=== PATIENT | male | born 1945 ===

== ENCOUNTER 2024-11-09 14:05 | Inpatient (IN) | payer OTHER, SELFPAY ==
[2024-11-09] VITALS (13 sets, daily range): BP systolic 90–145; BP diastolic 46–80; PULSE 71–115; RESP 16–25; TEMP 36.4–38.8; O2SAT 93–99; BMI 34.5
--- NOTE | ~2024-11-09 | XR_ITS ---
EXAMINATION: XR CHEST CLINICAL INFORMATION: CHF COMPARISON: None available. TECHNIQUE: Frontal view of the chest was obtained. FINDINGS: There is mild cardiac enlargement. Aortic valve replacement (TAVR). Mild vascular congestion in the hilar regions. Haziness of the interstitium, with subtle Christi B lines in the peripheral lungs, findings consistent with CHF. No discrete consolidation. No pneumothorax or effusion. No focal osseous or soft tissue abnormality. XR/XR chest 1V IMPRESSION: Cardiomegaly with moderate interstitial pulmonary edema. No effusions. Electronically signed by: Andrez Byers MD 11/09/2024 03:48 PM [facility] [place]
--- NOTE | 2024-11-09 14:24 | ED.GENADULT ---
HPI - General Adult General Chief complaint: General Medical Stated complaint: 10LB WT GAIN,FLUID RETENTION X2D FROM SNF PER EMS Time Seen by Provider: 11/09/24 14:15 Source: patient, EMS and RN notes reviewed Mode of arrival: EMS Limitations: no limitations History of Present Illness ED Provider: DR. Park HPI narrative: 79-year-old male from [facility]. Patient was brought in by ambulance for a change mental status and becoming confused, increased weight about 10 lb in 2 day, extensive bilateral lower extremity edema. Patient found to be febrile in the emergency department. Unable to obtain history from the patient. No known history of CHF, Related Data Home Medications ?Medication ?Instructions ?Recorded ?Confirmed apixaban 5 mg tablet (Eliquis) 5 mg PO BID 11/09/24 11/09/24 bisacodyl 10 mg rectal suppository 10 mg NC Q8H PRN Constipation 11/09/24 11/09/24 cetirizine 10 mg tablet 10 mg PO DAILY 11/09/24 11/09/24 cholecalciferol (vitamin D3) 125 125 mcg PO DAILY 11/09/24 11/09/24 mcg (5,000 unit) tablet (Vitamin D3) docusate sodium 100 mg tablet 100 mg PO Q12H PRN Constipation 11/09/24 11/09/24 furosemide 20 mg tablet 60 mg PO BID@0900,1700 11/09/24 11/09/24 hydrocortisone 1 % topical cream 1 appl topical Q6H PRN Hemorrhoids 11/09/24 11/09/24 (Preparation H Hydrocortisone) hydromorphone 2 mg tablet 4 mg PO Q4H PRN Pain (Scale Score 11/09/24 11/09/24 7-10) lidocaine-prilocaine 2.5 %-2.5 % 1 appl topical DAILY PRN Pain 11/09/24 11/09/24 topical cream magnesium hydroxide 400 mg/5 mL 30 ml PO DAILY PRN Constipation 11/09/24 11/09/24 oral suspension (Milk of Magnesia) methyl salicylate 15 %-menthol 10 1 appl topical Q12H PRN Pain 11/09/24 11/09/24 % topical cream (Muscle Rub) (Scale Score 1-3) metoprolol tartrate 25 mg tablet 25 mg PO BID 11/09/24 11/09/24 pantoprazole 40 mg tablet,delayed 40 mg PO DAILY@0630 11/09/24 11/09/24 release polyethylene glycol 3350 17 gram 17 g PO DAILY PRN Constipation 11/09/24 11/09/24 oral powder packet (Miralax) potassium chloride 20 mEq 20 meq PO DAILY 11/09/24 11/09/24 tablet,extended release(part/cryst) sodium phosphates 19 gram-7 118 ml NC DAILY PRN Constipation 11/09/24 11/09/24 gram/118 mL enema (Fleet Enema) tamsulosin 0.4 mg capsule 0.4 mg PO DAILY 11/09/24 11/09/24 Allergies Allergy/AdvReac Type Severity Reaction Status Date / Time acetaminophen [From Tylenol] Allergy Unknown Verified 11/09/24 14:16 atorvastatin Allergy Unknown Verified 11/09/24 14:16 cyclobenzaprine Allergy Unknown Verified 11/09/24 14:16 [From Flexeril] ibuprofen [From Motrin] Allergy Unknown Verified 11/09/24 14:16 Review of Systems Review of Systems: All other systems are reviewed and are negative Constitutional: Reports as per HPI and Reports no additional constitutional complaints Eyes: Reports as per HPI and Reports no additional eye complaints Reports system reviewed and no additional complaints, except as documented Cardiovascular: Reports as per HPI and Reports no additional cardiovascular complaints Respiratory: Reports as per HPI and Reports no additional respiratory complaints Gastrointestinal: Reports as per HPI and Reports no additional gastrointestinal complaints Genitourinary: Reports no additional female genitourinary complaints Musculoskeletal: Reports no additional musculoskeletal complaints Skin/Breast: Reports system reviewed and no additional complaints, except as docu Psychiatric: Reports no additional psychiatric complaints Endocrine: Reports no additional endocrine complaints Hematologic/Lymphatic: Reports no additional hematologic/lymphatic complaints Allergic/Immunologic: Reports no additional allergic/immunologic complaints Reports system reviewed and no additional complaints, except as documented and Reports Abnormal speech present [facility] Social History Social History Smoked in Last 30 Days: No Use of substances other than those prescribed or required for medical reasons: No Advance Directives: No Advance Directives Information Provided: Yes Do you have a plan to hurt others: No Plan Physical Exam ED Vital Signs: Vital Signs - 24 hr 11/09/24 14:19 11/09/24 15:02 11/09/24 15:36 Temperature 100.8 F H 99 F Pulse Rate 115 H 110 H Respiratory Rate 18 17 Blood Pressure 129/75 136/66 145/69 H Pulse Oximetry 95 94 Oxygen Delivery Method Room Air Room Air 11/09/24 16:24 11/09/24 18:52 Temperature 101.8 F H Pulse Rate 111 H 96 Respiratory Rate 18 19 Blood Pressure 142/74 H 130/70 Pulse Oximetry 93 93 Oxygen Delivery Method Room Air Room Air BMI result Body Mass Index 34.5 Vital signs have been reviewed and appear to be correct. Blood pressure elevated. Heart rate elevated. Respiratory rate normal. Temperature normal. Oxygen saturation normal. Appearance: Alert. Oriented X3. No acute distress. Head: Normal external exam. Normocephalic. Atraumatic. No Guzmán signs noted. No raccoon eyes noted Eyes: PERRLA. EOMI. Conjunctiva and sclera normal. Eyelids normal. ENT: TM's Normal. Pharynx normal. Uvula midline. Moist mucous membranes. No trismus noted. No drooling noted. No muffled voice noted. Neck: Normal inspection. Neck supple. FROM. No adenopathy. Thyroid Normal. No meningeal signs. No neck mass noted. CVS: Normal heart rate and rhythm. Heart sound normal. No murmurs noted. Pulses normal throughout. Respiratory: No respiratory distress. Painless inspiration. Breath sounds normal. No wheezes/rales/rhonchi noted. Chest nontender. No accessory muscle usage noted or decreased air movement noted. Abdomen: Soft and nontender. Bowel sounds normal in all 4 quadrants. No distention noted. No organomegaly noted. No visible injury noted. Back: No CVA tenderness. Full range of motion noted. Skin: Skin warm and dry. Normal skin color. Normal skin turgor. No rashes/lesions/lacerations noted. Extremities: +bilateral +2 lower extremity edema. With diffuse erythema to both lower extremities. Extremities exhibit normal range of motion. Extremities nontender. Neuro: Oriented X 3. Cranial nerve exam: II-XII are grossly intact No motor deficit. No sensory deficit. Reflexes normal. Course Reevaluation(s) Reevaluation #1: Bilateral lower extremities edema will administer Lasix. UTI/bilateral lower extremity cellulitis. Will administer Zosyn. Influenza a No IV fluid administration patient needs diuresis rather for a sign of hypervolemia. Will admit. Time: 16:41 Medications Administered Discontinued Medications Generic Name Dose Route Start Last Admin Trade Name Cory PRN Reason Stop Dose Admin Acetaminophen 650 mg 11/09/24 19:13 11/09/24 19:41 Acetaminophen 325 Mg Tablet PO 11/09/24 19:14 Not Given ONCE ONE Furosemide 40 mg 11/09/24 14:54 11/09/24 15:02 Furosemide 40 Mg/4 Ml Vial IVPUSH 11/09/24 14:55 40 mg ONCE ONE Administration Protocol Piperacillin Sod/Tazobactam 50 mls @ 100 mls/hr 11/09/24 14:42 11/09/24 15:32 Sod 3.375 gm/ Sodium Chloride IV 11/09/24 15:11 Infused ONCE ONE Infusion Medical Decision Making Differential Diagnosis Differential Diagnoses: The differential diagnosis associated with the presentation includes (CHF, pneumonia, pneumothorax, pleural effusion, viral upper respiratory infection, UTI, bilateral lower extremity cellulitis, electrolyte derangement, severe anemia.) Admission/Observation Consideration of admission/observation: Escalation of care including admission/observation considered Consult Healthcare Provider Management of the patient was discussed with: Hospitalist (Dr. Crowe) Lab Data MDM Lab Attestation statement: I reviewed the patient's lab results. 11/09/24 14:51 11/09/24 14:51 Labs: Lab Results 11/09/24 11/09/24 11/09/24 Range/Units 14:51 14:52 15:47 WBC 6.0 (4.8-10.8) X10*3/uL RBC 3.73 L (4.60-5.80) X10*6/uL Hgb 11.1 L (14.0-18.0) g/dl Hct 34.2 L (42.0-52.0) % MCV 91.7 (80.0-98.0) fL MCH 29.8 (27.0-33.0) pg MCHC 32.5 (31.0-36.0) g/dl RDW 14.4 (11.0-16.0) % Plt Count 79 L (160-400) X10*3/uL MPV 11.3 (9.4-12.4) fL Immature Gran % (Auto) 0.5 H (0.0-0.4) % Neut % (Auto) 80.6 H (45-73) % Lymph % (Auto) 7.7 L (20-40) % [place] % (Auto) 10.2 (2-11) % Eos % (Auto) 0.5 (0-4) % Baso % (Auto) 0.5 (0-2) % Lymph # (Auto) 0.5 L (1.2-4.9) X10*3/uL [place] # (Auto) 0.6 (0.1-1.2) X10*3/uL Eos # (Auto) 0.0 (0.0-0.4) X10*3/uL Baso # (Auto) 0.0 (0.0-0.2) X10*3/uL Abs Immat Gran (auto) 0.03 (0.00-0.03) X10*3/uL Absolute Neuts (auto) 4.8 (2.0-8.3) x10*3/uL Absolute Nucleated RBC 0.000 (0.0-0.012) X10*3/uL Nucleated RBC % (auto) 0.0 (0.0-0.2) /100WBC Sodium 134 L (135-145) mmol/L Potassium 5.1 (3.3-5.1) mmol/L Chloride 100 (96-108) mmol/L Carbon Dioxide 18 L (22-29) mmol/L Anion Gap 21 H (12-20) BUN 36 H (9-16) mg/dL Creatinine 1.20 (0.5-1.4) mg/dL Estim Creat Clear Calc 57.1 Estimated GFR 59 Random Glucose 90 (60-115) mg/dL Lactic Acid 1.9 (0.5-2.0) mmol/L Calcium 9.5 (8.4-10.2) mg/dL Magnesium 2.0 (1.6-2.6) mg/dL Total Bilirubin 1.1 H (0.0-1.0) mg/dL Direct Bilirubin 0.2 (0.0-0.5) mg/dL AST 58 H (5-37) U/L ALT 13 (0-40) U/L Alkaline Phosphatase 155 H (39-117) U/L Troponin I High Sens 26.6 (<3.5-35.0) ng/L B-Natriuretic Peptide 208 H (<100) pg/mL Total Protein 8.0 (6.5-8.0) g/dL Albumin 3.8 (3.5-5.0) g/dL Lipase 9 (8-78) U/L Urine Color Yellow Urine Appearance Clear Urine pH 5.5 (5.0-9.0) Ur Specific [place] 1.010 (1.005-1.025) Urine Protein Trace (Neg-Trace) mg/dL Urine Glucose (UA) Negative (Negative) mg/dL Urine Ketones Negative (Negative) mg/dL Urine Blood Negative (Negative) Urine Nitrite Negative (Negative) Ur Leukocyte Esterase Large (3+) H (Negative) Urine RBC 0-2 (0-2) /HPF Urine WBC >50 H (0-5) /HPF Ur Squamous Epith Cells 0-2 (0-2) /HPF Urine Bacteria None Seen (None Seen) Hyaline Casts 3-5 (0-2) /LPF Influenza Type A (PCR) POSITIVE A (Negative) Influenza Type B (PCR) NEGATIVE (Negative) RSV RNA Qual (PCR) NEGATIVE (Negative) SARS-CoV-2 RNA (RT-PCR) NEGATIVE (Negative) Independent Interpretation I performed an independent interpretation of an: Plain X-Ray (Chest:Cardiomegaly with moderate interstitial pulmonary edema. No effusions.) Radiology Impression Discussion of test interpretation with radiology: I have reviewed the radiologist's reading. Discharge Plan Discharge Clinical Impression: CHF (congestive heart failure), Edema, Influenza A, Acute UTI Patient Disposition: Admitted As Inpatient Print Language: Trinidadian
--- NOTE | 2024-11-09 14:43 | ECG_ITS ---
Test Reason : sob Blood Pressure : */* mmHG Vent. Rate : 102 BPM Atrial Rate : * BPM P-R Int : * ms QRS Dur : 112 ms QT Int : 360 ms P-R-T Axes : * -73 87 degrees QTcB Int : 469 ms Atrial fibrillation with rapid ventricular response Left axis deviation Abnormal ECG No previous ECGs available Referred By: Panda Park Electronically Signed By: HARLAN RAJPUT
[2024-11-09 15:00] LABS: MANUAL DIFF FLAG NO
[2024-11-09] MEDS: Piperacillin Sodium/Tazobactam 3.375 GM in 0.9 % Sodium Chloride 50 ML IV (15:02)
[2024-11-09] MEDS: Furosemide 40 MG/4 ML VIAL IVPUSH (15:02)
--- NOTE | 2024-11-09 15:07 | PC.NURSE ---
Per MD Gisel - go with 70mg Methadone
--- NOTE | 2024-11-09 15:15 | PC.NURSE ---
valentín from [facility] c/o unintentional 10lb weight gain x 2 days as well as increased confusion. new dx of CHF. compliant w/ 60mg lasix BID. SNF administered lasix prior to EMS arrival. denies chest pain/palpitations. pt has no complaints. upon ED arrival - pt alert and oriented to self only. vss and up to date aside from being febrile rectally. nsr on the time recorder. pt displays w/ 3+ pitting edema in LE bilat. 18gIV placed in the right forearm - labs obtained/sent to lab. medication administered per provider order. ekg obtained by [employer]. pt currently on RA w/o difficulty. no sob/wob noted. respirations even/unlabored. plan of care ongoing. call sanchez placed within reach.
[2024-11-09 15:22] LABS: Basophils Percent Auto 0.5 % (0-2); Eosinophils Percent Auto 0.5 % (0-4); Hematocrit 34.2 % (42.0-52.0); Hemoglobin 11.1 g/dl (14.0-18.0); Imm Gran Abs Auto 0.03 X10*3/uL (0.00-0.03); Imm Gran Pct Auto 0.5 % (0.0-0.4); Lactic Acid 1.9 mmol/L (0.5-2.0); Lipase 9 U/L (8-78); Lymphocytes Absolute Auto 0.5 X10*3/uL (1.2-4.9); Lymphocytes Percent Auto 7.7 % (20-40); Mean Corpuscular HGB Conc 32.5 g/dl (31.0-36.0); Mean Corpuscular Hemoglobin 29.8 pg (27.0-33.0); Mean Corpuscular Volume 91.7 fL (80.0-98.0); Monocytes Absolute Auto 0.6 X10*3/uL (0.1-1.2); Monocytes Percent Auto 10.2 % (2-11); Neutrophils Absolute Auto 4.8 x10*3/uL (2.0-8.3); Neutrophils Percent Auto 80.6 % (45-73); Red Blood Count 3.73 X10*6/uL (4.60-5.80); Red Cell Distribution Width 14.4 % (11.0-16.0)
[2024-11-09 15:28] LABS: Troponin-I High Sensitivity 26.6 ng/L (<3.5-35.0)
--- NOTE | 2024-11-09 15:32 | PC.NURSE ---
Addendum entered by Yolie Hough 11/09/24 20:29: no IVF bolus per MD d/t hx CHF. Original Note: delay in abx administration d/t having 3 separate sepsis alerts plus this sepsis alert at the same time.
[2024-11-09 15:44] LABS: Influenza A PCR POSITIVE (Negative); Influenza B PCR NEGATIVE (Negative); Resp Syncy Virus RNA Qual PCR NEGATIVE (Negative); SARS COV2 PCR INHOUSE NEGATIVE (Negative)
[2024-11-09 15:53] LABS: Appearance Urine Clear; Color Urine Yellow; Glucose Urine UA Negative (Negative); Leukocyte Esterase Urine Large (3+) (Negative); Nitrite Urine Negative (Negative); PH 5.5 (5.0-9.0); UMIC TRIGGER UACC YES; Urine Blood Negative (Negative); Urine Ketones Negative (Negative); Urine Protein Trace mg/dL (Neg-Trace)
[2024-11-09 15:58] LABS: Bacteria Urine None Seen (None Seen); RBC Urine 0-2 /HPF (0-2); Squamous Epithelial Cell Urine 0-2 /HPF (0-2); UACC Culture Trigger YES; WBC Urine >50 /HPF (0-5)
[2024-11-09 16:01] LABS: Mean Platelet Volume 11.3 fL (9.4-12.4); Platelet Count 79 X10*3/uL (160-400)
--- NOTE | 2024-11-09 16:30 | PC.NURSE ---
pt remains febrile but reports allergies to tylenol and motrin. pt reports he is unaware of reaction to allergy. provider notified/aware. no medication to be administered at this time. plan of care ongoing.
--- OUTSIDE RECORDS SUMMARY | 2024-11-09 16:59 | XMS_ITS | Encounter Summary ---
Author Organization [employer] Address [address] [place] [address] Care Team Providers Care Java Support Engineer Name Role Phone Billy Fraga Primary Care Provider [phone] Encounter Details Date Type Department Care Team (Late st Contact Info) Description 10/06/2024 Lab Requisition [facility] - Main Lab [address] [facility] [place] [address] Chaya Kramer MD [address] [address] Heart failure, unspecified (CMS/HCC) Social History Tobacco Use Types Packs/Day Years Used Date Smoking Tobacco: Never Assessed Sex and Gender Information Value Date Recorded Sex Assigned at Not on file Legal Sex Male 1:09 PM EST Gender Identity Not on file Sexual Orientation Not on file documented as of this encounter Plan of Treatment Not on file documented as of this encounter Procedures Procedure Name Priority Date/Time Associated Diagnosis Comments BASIC METABOLIC PANEL Routine 10/06/2024 5:18 AM EST Heart failure, unspecified (CMS/HCC) documented in this encounter Results * (ABNORMAL) Basic metabolic panel (10/06/2024 5:18 AM EST) Sodium 135 133 - 145 mmol/L LAB CHEMISTRY METHOD 10/06/2024 8:35 AM EST [facility] Potassium 3.7 3.5 - 5.5 mmol/L LAB CHEMISTRY METHOD 10/06/2024 8:35 AM EST [facility] Chloride 99 96 - 110 mmol/L LAB CHEMISTRY METHOD 10/06/2024 8:35 AM EST [facility] CO2 33(H) 21 - 32 mmol/L LAB CHEMISTRY METHOD 10/06/2024 8:35 AM [facility] Anion Gap 3 3 - 11 LAB CHEMISTRY METHOD 10/06/2024 8:35 AM [facility] Glucose 152(H) 70 - 100 mg/dL LAB CHEMISTRY METHOD 10/06/2024 8:35 AM [facility] BUN 25 5 - 25 mg/dL LAB CHEMISTRY METHOD 10/06/2024 8:35 AM [facility] Creatinine 1.00 0.70 - 1.30 mg/dL LAB CHEMISTRY METHOD 10/06/2024 8:35 AM [facility] eGFR 77 >=60 mL/min/1. 73m2 LAB CHEMISTRY METHOD 10/06/2024 8:35 AM [facility] Comment:Calculation based on the??Chronic Kidney Disease Epidemiology Collaboration (CKD-EPI) equation refit??without adjustment for race. BUN/Creatinine Ratio 25.0 LAB CHEMISTRY METHOD 10/06/2024 8:35 AM [facility] Calcium 8.7 8.5 - 10.5 mg/dL LAB CHEMISTRY METHOD 10/06/2024 8:35 AM [facility] Blood Venous blood specimen / Unknown Venipuncture / Unknown 10/06/2024 5:18 AM EST 10/06/2024 7:43 AM EST us Chaya Kramer MD LAB BLOOD ORDERABLES Fin al Result [facility] [address] [place] [address], documented in this encounter Visit Diagnoses Diagnosis Heart failure, unspecified (CMS/HCC) Heart failure, unspecified documented in this encounter Care Teams Java Support Engineer Relationship Specialty Start Date End Date Billy Fraga PA [address] [place] [phone] PCP - General Physician Precipitator 09/07/24 documented as of this encounter
--- OUTSIDE RECORDS SUMMARY | 2024-11-09 16:59 | XMS_ITS | Encounter Summary ---
Author Organization [employer] Address [address] [place] [address] Care Team Providers Care Machined Parts Metal Sprayer Name Role Phone Billy Fraga Primary Care Provider [phone] Encounter Details Date Type Department Care Team (Late st Contact Info) Description 09/18/2024 Lab Requisition [facility] - Main Lab [address] [facility] [place] [address] Chaya Kramer MD [address] [address] Venous insufficiency (chronic) (peripheral) Social History Tobacco Use Types Packs/Day Years [...] Procedure Name Priority Date/Time Associated Diagnosis Comments COMPREHENSIVE METABOLIC PANEL Routine 09/21/2024 8:53 AM EST Venous insufficiency (chronic) (peripheral) documented in this encounter Results * (ABNORMAL) Comprehensive metabolic panel (09/21/2024 8:53 AM EST) Sodium 137 133 - 145 mmol/L LAB CHEMISTRY METHOD 09/21/2024 12:31 PM EST [facility] Potassium 3.5 3.5 - 5.5 mmol/L LAB CHEMISTRY METHOD 09/21/2024 12:31 PM EST [facility] Chloride 100 96 - 110 mmol/L LAB CHEMISTRY METHOD 09/21/2024 12:31 PM EST [facility] CO2 31 21 - 32 mmol/L LAB CHEMISTRY METHOD 09/21/2024 12:31 PM [facility] Anion Gap 6 3 - 11 LAB CHEMISTRY METHOD 09/21/2024 12:31 PM [facility] Glucose 142(H) 70 - 100 mg/dL LAB CHEMISTRY METHOD 09/21/2024 12:31 PM [facility] BUN 23 5 - 25 mg/dL LAB CHEMISTRY METHOD 09/21/2024 12:31 PM [facility] Creatinine 1.07 0.70 - 1.30 mg/dL LAB CHEMISTRY METHOD 09/21/2024 12:31 PM [facility] eGFR 71 >=60 mL/min/1. 73m2 LAB CHEMISTRY METHOD 09/21/2024 12:31 PM [facility] Comment:Calculation based on the??Chronic Kidney Disease Epidemiology Collaboration (CKD-EPI) equation refit??without adjustment for race. BUN/Creatinine Ratio 21.5 LAB CHEMISTRY METHOD 09/21/2024 12:31 PM [facility] Calcium 8.9 8.5 - 10.5 mg/dL LAB CHEMISTRY METHOD 09/21/2024 12:31 PM [facility] AST (SGOT) 40 10 - 42 unit/L LAB CHEMISTRY METHOD 09/21/2024 12:31 PM [facility] ALT (SGPT) 18 10 - 60 unit/L LAB CHEMISTRY METHOD 09/21/2024 12:31 PM [facility] Alkaline Phosphatase 181(H) 42 - 121 unit/L LAB CHEMISTRY METHOD 09/21/2024 12:31 PM [facility] Total Protein 6.6 6.0 - 8.0 g/dL LAB CHEMISTRY METHOD 09/21/2024 12:31 PM [facility] Albumin 3.3 3.2 - 5.0 g/dL LAB CHEMISTRY METHOD 09/21/2024 12:31 PM [facility] Total Bilirubin 0.6 0.0 - 1.4 mg/dL LAB CHEMISTRY METHOD 09/21/2024 12:31 PM EST [facility] Blood Venous blood specimen / Unknown Venipuncture / Unknown 09/21/2024 8:53 AM EST 09/21/2024 12:31 PM EST us Chaya Kramer MD LAB BLOOD ORDERABLES Fin al Result [facility] [address] [place] [address], documented in this encounter Visit Diagnoses Diagnosis Venous insufficiency (chronic) (peripheral) Unspecified venous (peripheral) insufficiency documented in this encounter Care Teams Machined Parts Metal Sprayer Relationship Specialty Start Date End Date Billy Fraga PA [address] [place] [phone] PCP - General Physician Film Recordist 09/07/24 documented as of this encounter
--- OUTSIDE RECORDS SUMMARY | 2024-11-09 16:59 | XMS_ITS | Encounter Summary ---
Author Organization [employer] Address [address] [place] [address] Care Team Providers Care Manager Photo Name Role Phone Blily Fraga Primary Care Provider Encounter Details Date Type Department Care Team (Late st Contact Info) Description 09/20/2024 Lab Requisition [facility] - Main Lab [address] [place] [address] Chaya Kramer MD [address] [address] Cellulitis, unspecified Social History Tobacco Use Types Packs/Day Years [...] Procedure Name Priority Date/Time Associated Diagnosis Comments COMPLETE BLOOD COUNT Routine 09/20/2024 7:22 AM EST Cellulitis, unspecified COMPREHENSIVE METABOLIC PANEL Routine 09/20/2024 7:22 AM EST Cellulitis, unspecified documented in this encounter Results * (ABNORMAL) Comprehensive metabolic panel (09/20/2024 7:22 AM EST) Sodium 137 133 - 145 mmol/L LAB CHEMISTRY METHOD 09/20/2024 10:35 AM EST [facility] Potassium 4.0 3.5 - 5.5 mmol/L LAB CHEMISTRY METHOD 09/20/2024 10:35 AM EST [facility] Chloride 100 96 - 110 mmol/L LAB CHEMISTRY METHOD 09/20/2024 10:35 AM EST [facility] CO2 33(H) 21 - 32 mmol/L LAB CHEMISTRY METHOD 09/20/2024 10:35 AM [facility] Anion Gap 4 3 - 11 LAB CHEMISTRY METHOD 09/20/2024 10:35 AM [facility] Glucose 75 70 - 100 mg/dL LAB CHEMISTRY METHOD 09/20/2024 10:35 AM [facility] BUN 27(H) 5 - 25 mg/dL LAB CHEMISTRY METHOD 09/20/2024 10:35 AM [facility] Creatinine 1.07 0.70 - 1.30 mg/dL LAB CHEMISTRY METHOD 09/20/2024 10:35 AM [facility] eGFR 71 >=60 mL/min/1. 73m2 LAB CHEMISTRY METHOD 09/20/2024 10:35 AM [facility] Comment:Calculation based on the??Chronic Kidney Disease Epidemiology Collaboration (CKD-EPI) equation refit??without adjustment for race. BUN/Creatinine Ratio 25.2 LAB CHEMISTRY METHOD 09/20/2024 10:35 AM [facility] Calcium 8.9 8.5 - 10.5 mg/dL LAB CHEMISTRY METHOD 09/20/2024 10:35 AM [facility] AST (SGOT) 41 10 - 42 unit/L LAB CHEMISTRY METHOD 09/20/2024 10:35 AM [facility] ALT (SGPT) 20 10 - 60 unit/L LAB CHEMISTRY METHOD 09/20/2024 10:35 AM [facility] Alkaline Phosphatase 177(H) 42 - 121 unit/L LAB CHEMISTRY METHOD 09/20/2024 10:35 AM [facility] Total Protein 6.7 6.0 - 8.0 g/dL LAB CHEMISTRY METHOD 09/20/2024 10:35 AM [facility] Albumin 3.4 3.2 - 5.0 g/dL LAB CHEMISTRY METHOD 09/20/2024 10:35 AM [facility] Total Bilirubin 0.6 0.0 - 1.4 mg/dL LAB CHEMISTRY METHOD 09/20/2024 10:35 AM [facility] Blood Venous blood specimen / Unknown Venipuncture / Unknown 09/20/2024 7:22 AM EST 09/20/2024 9:13 AM EST us Chaya Kramer MD LAB BLOOD ORDERABLES Fin al Result [facility] [address] [place] [address], [place] [phone] * (ABNORMAL) Complete blood count (09/20/2024 7:22 AM EST) WBC 5.2 4.8 - 10.8 K/mcL LAB HEMETOLOGY METHOD 09/20/2024 11:07 AM [facility] RBC 3.70(L) 4.50 - 5.50 M/mcL LAB HEMETOLOGY METHOD 09/20/2024 11:07 AM [facility] Hemoglobin 11.0(L) 13.5 - 17.5 g/dL LAB HEMETOLOGY METHOD 09/20/2024 11:07 AM [facility] Hematocrit 35.2(L) 42.0 - 54.0 % LAB HEMETOLOGY METHOD 09/20/2024 11:07 AM [facility] MCV 95.1 79.0 - 98.0 FL LAB HEMETOLOGY METHOD 09/20/2024 11:07 AM [facility] MCH 29.7 27.0 - 32.0 pcg LAB HEMETOLOGY METHOD 09/20/2024 11:07 AM [facility] MCHC 31.3(L) 32.0 - 37.0 g/dL LAB HEMETOLOGY METHOD 09/20/2024 11:07 AM [facility] RDW 14.6 11.0 - 15.0 % LAB HEMETOLOGY METHOD 09/20/2024 11:07 AM [facility] Platelets 88(L) 130 - 400 K/mcL LAB HEMETOLOGY METHOD 09/20/2024 11:07 AM [facility] Comment:previously verified by slide MPV 11.2(H) 7.0 - 11.0 FL LAB HEMETOLOGY METHOD 09/20/2024 11:07 AM [facility] NRBC 0.0 <1.0 % LAB HEMETOLOGY METHOD 09/20/2024 11:07 AM [facility] NRBC Absolute 0.00 <0.10 K/mcL LAB HEMETOLOGY METHOD 09/20/2024 11:07 AM [facility] Blood Venous blood specimen / Unknown Venipuncture / Unknown 09/20/2024 7:22 AM EST 09/20/2024 9:13 AM EST us Chaya Kramer MD LAB BLOOD ORDERABLES Fin al Result [facility] [address] [place] [address], documented in this encounter Visit Diagnoses Diagnosis Cellulitis, unspecified documented in this encounter Care Teams Manager Photo Relationship Specialty Start Date End Date Billy Fraga PA [address] [place] [phone] PCP - General Physician Integration Software Engineer 09/07/24 documented as of this encounter
--- OUTSIDE RECORDS SUMMARY | 2024-11-09 16:59 | XMS_ITS | Encounter Summary ---
Author Organization [facility] Address [address] [place] [address] Care Team Providers Care Nursing Assistants Teacher Name Role Phone Billy Fraga Primary Care Provider [phone] Encounter Details Date Type Department Care Team (Late st Contact Info) Description 09/04/2024 Lab Requisition [facility] - Main Lab 299 [facility] [place] [address] Chaya Kramer MD [address] [address] Venous insufficiency (chronic) (peripheral) Social History Tobacco [...] Associated Diagnosis Comments COMPLETE BLOOD COUNT Routine 09/04/2024 5:00 AM EST Venous insufficiency (chronic) (peripheral) COMPREHENSIVE METABOLIC PANEL Routine 09/04/2024 5:00 AM EST Venous insufficiency (chronic) (peripheral) documented in this encounter Results * (ABNORMAL) Comprehensive metabolic panel (09/04/2024 5:00 AM EST) Sodium 139 133 - 145 mmol/L LAB CHEMISTRY METHOD 09/04/2024 11:12 AM EST [facility] Potassium 3.2(L) 3.5 - 5.5 mmol/L LAB CHEMISTRY METHOD 09/04/2024 11:12 AM EST [facility] Chloride 102 96 - 110 mmol/L LAB CHEMISTRY METHOD 09/04/2024 11:12 AM [facility] CO2 33(H) 21 - 32 mmol/L LAB CHEMISTRY METHOD 09/04/2024 11:12 AM [facility] Anion Gap 4 3 - 11 LAB CHEMISTRY METHOD 09/04/2024 11:12 AM [facility] Glucose 102(H) 70 - 100 mg/dL LAB CHEMISTRY METHOD 09/04/2024 11:12 AM [facility] BUN 19 5 - 25 mg/dL LAB CHEMISTRY METHOD 09/04/2024 11:12 AM [facility] Creatinine 1.01 0.70 - 1.30 mg/dL LAB CHEMISTRY METHOD 09/04/2024 11:12 AM [facility] eGFR 76 >=60 mL/min/1. 73m2 LAB CHEMISTRY METHOD 09/04/2024 11:12 AM [facility] Comment:Calculation based on the??Chronic Kidney Disease Epidemiology Collaboration (CKD-EPI) equation refit??without adjustment for race. BUN/Creatinine Ratio 18.8 LAB CHEMISTRY METHOD 09/04/2024 11:12 AM [facility] Calcium 8.7 8.5 - 10.5 mg/dL LAB CHEMISTRY METHOD 09/04/2024 11:12 AM [facility] AST (SGOT) 32 10 - 42 unit/L LAB CHEMISTRY METHOD 09/04/2024 11:12 AM [facility] ALT (SGPT) 16 10 - 60 unit/L LAB CHEMISTRY METHOD 09/04/2024 11:12 AM [facility] Alkaline Phosphatase 173(H) 42 - 121 unit/L LAB CHEMISTRY METHOD 09/04/2024 11:12 AM [facility] Total Protein 6.0 6.0 - 8.0 g/dL LAB CHEMISTRY METHOD 09/04/2024 11:12 AM [facility] Albumin 3.1(L) 3.2 - 5.0 g/dL LAB CHEMISTRY METHOD 09/04/2024 11:12 AM [facility] Total Bilirubin 0.7 0.0 - 1.4 mg/dL LAB CHEMISTRY METHOD 09/04/2024 11:12 AM [facility] Blood Venous blood specimen / Unknown 09/04/2024 5:00 AM EST 09/04/2024 10:33 AM EST us Chaya Kramer MD LAB BLOOD ORDERABLES Fin al Result [facility] [address] [place] [address], * (ABNORMAL) Complete blood count (09/04/2024 5:00 AM EST) WBC 4.6(L) 4.8 - 10.8 K/mcL LAB HEMETOLOGY METHOD 09/04/2024 10:51 AM [facility] RBC 3.40(L) 4.50 - 5.50 M/mcL LAB HEMETOLOGY METHOD 09/04/2024 10:51 AM [facility] Hemoglobin 9.8(L) 13.5 - 17.5 g/dL LAB HEMETOLOGY METHOD 09/04/2024 10:51 AM [facility] Hematocrit 31.6(L) 42.0 - 54.0 % LAB HEMETOLOGY METHOD 09/04/2024 10:51 AM [facility] MCV 92.7 79.0 - 98.0 FL LAB HEMETOLOGY METHOD 09/04/2024 10:51 AM [facility] MCH 28.7 27.0 - 32.0 pcg LAB HEMETOLOGY METHOD 09/04/2024 10:51 AM [facility] MCHC 31.0(L) 32.0 - 37.0 g/dL LAB HEMETOLOGY METHOD 09/04/2024 10:51 AM [facility] RDW 15.0 11.0 - 15.0 % LAB HEMETOLOGY METHOD 09/04/2024 10:51 AM EST [facility] Platelets 86(L) 130 - 400 K/mcL LAB HEMETOLOGY METHOD 09/04/2024 10:51 AM EST [facility] Comment:previously verified by slide MPV 11.4(H) 7.0 - 11.0 FL LAB HEMETOLOGY METHOD 09/04/2024 10:51 AM EST [facility] NRBC 0.0 <1.0 % LAB HEMETOLOGY METHOD 09/04/2024 10:51 AM EST [facility] NRBC Absolute 0.00 <0.10 K/mcL LAB HEMETOLOGY METHOD 09/04/2024 10:51 AM [facility] Blood Venous blood specimen / Unknown 09/04/2024 5:00 AM EST 09/04/2024 10:33 AM EST us Chaya Kramer MD LAB BLOOD ORDERABLES Fin al Result [facility] [address] [place] [address], documented in this encounter Visit Diagnoses Diagnosis Venous insufficiency (chronic) (peripheral) Unspecified venous (peripheral) insufficiency documented in this encounter Care Teams Nursing Assistants Teacher Relationship Specialty Start Date End Date Billy Fraga PA [address] [place] [phone] PCP - General Physician Overhead Irrigator 09/07/24 documented as of this encounter
--- OUTSIDE RECORDS SUMMARY | 2024-11-09 16:59 | XMS_ITS | Encounter Summary ---
Author Organization [employer] Address [address] [place] [address] Care Team Providers Care Tool And Cutter Grinder Name Role Phone Billy Fraga Primary Care Provider [phone] Encounter Details Date Type Department Care Team (Late st Contact Info) Description 10/23/2024 Lab Requisition [facility] - Main Lab [address] [place] [address] Chaya Kramer MD [address] [phone] Heart failure, unspecified (CMS/HCC); Venous insufficiency (chronic) (peripheral) Social History Tobacco [...] Associated Diagnosis Comments COMPLETE BLOOD COUNT Routine 10/26/2024 10:12 AM EST Heart failure, unspecified (CMS/HCC) Venous insufficiency (chronic) (peripheral) BASIC METABOLIC PANEL Routine 10/26/2024 10:12 AM EST Heart failure, unspecified (CMS/HCC) Venous insufficiency (chronic) (peripheral) documented in this encounter Results * (ABNORMAL) Complete blood count (10/26/2024 10:12 AM EST) WBC 5.8 4.8 - 10.8 K/mcL LAB HEMETOLOGY METHOD 10/26/2024 1:30 PM EST [facility] RBC 3.80(L) 4.50 - 5.50 M/mcL LAB HEMETOLOGY METHOD 10/26/2024 1:30 PM [facility] Hemoglobin 11.3(L) 13.5 - 17.5 g/dL LAB HEMETOLOGY METHOD 10/26/2024 1:30 PM [facility] Hematocrit 35.4(L) 42.0 - 54.0 % LAB HEMETOLOGY METHOD 10/26/2024 1:30 PM [facility] MCV 93.2 79.0 - 98.0 FL LAB HEMETOLOGY METHOD 10/26/2024 1:30 PM [facility] MCH 29.7 27.0 - 32.0 pcg LAB HEMETOLOGY METHOD 10/26/2024 1:30 PM [facility] MCHC 31.9(L) 32.0 - 37.0 g/dL LAB HEMETOLOGY METHOD 10/26/2024 1:30 PM [facility] RDW 14.7 11.0 - 15.0 % LAB HEMETOLOGY METHOD 10/26/2024 1:30 PM [facility] Platelets 93(L) 130 - 400 K/mcL LAB HEMETOLOGY METHOD 10/26/2024 1:30 PM [facility] MPV 11.7(H) 7.0 - 11.0 FL LAB HEMETOLOGY METHOD 10/26/2024 1:30 PM [facility] NRBC 0.0 <1.0 % LAB HEMETOLOGY METHOD 10/26/2024 1:30 PM [facility] NRBC Absolute 0.00 <0.10 K/mcL LAB HEMETOLOGY METHOD 10/26/2024 1:30 PM [facility] Blood Venous blood specimen / Unknown Venipuncture / Unknown 10/26/2024 10:12 AM EST 10/26/2024 12:26 PM EST Chaya Kramer MD LAB BLOOD ORDERABLES Fin al Result [facility] [address] [place] [address], * (ABNORMAL) Basic metabolic panel (10/26/2024 10:12 AM EST) Sodium 136 133 - 145 mmol/L LAB CHEMISTRY METHOD 10/26/2024 1:59 PM [facility] Potassium 3.8 3.5 - 5.5 mmol/L LAB CHEMISTRY METHOD 10/26/2024 1:59 PM [facility] Chloride 99 96 - 110 mmol/L LAB CHEMISTRY METHOD 10/26/2024 1:59 PM [facility] CO2 31 21 - 32 mmol/L LAB CHEMISTRY METHOD 10/26/2024 1:59 PM [facility] Anion Gap 6 3 - 11 LAB CHEMISTRY METHOD 10/26/2024 1:59 PM [facility] Glucose 106(H) 70 - 100 mg/dL LAB CHEMISTRY METHOD 10/26/2024 1:59 PM [facility] BUN 31(H) 5 - 25 mg/dL LAB CHEMISTRY METHOD 10/26/2024 1:59 PM [facility] Creatinine 1.15 0.70 - 1.30 mg/dL LAB CHEMISTRY METHOD 10/26/2024 1:59 PM [facility] eGFR 65 >=60 mL/min/1. 73m2 LAB CHEMISTRY METHOD 10/26/2024 1:59 PM [facility] Comment:Calculation based on the??Chronic Kidney Disease Epidemiology Collaboration (CKD-EPI) equation refit??without adjustment for race. BUN/Creatinine Ratio 27.0 LAB CHEMISTRY METHOD 10/26/2024 1:59 PM [facility] Calcium 9.6 8.5 - 10.5 mg/dL LAB CHEMISTRY METHOD 10/26/2024 1:59 PM [facility] Blood Venous blood specimen / Unknown Venipuncture / Unknown 10/26/2024 10:12 AM EST 10/26/2024 12:26 PM EST us Chaya Kramer MD LAB BLOOD ORDERABLES Fin al Result [facility] [address] [place] [address], documented in this encounter Visit Diagnoses Diagnosis Heart failure, unspecified (CMS/HCC) Heart failure, unspecified Venous insufficiency (chronic) (peripheral) Unspecified venous (peripheral) insufficiency documented in this encounter Care Teams Tool And Cutter Grinder Relationship Specialty Start Date End Date Billy Fraga PA [address] [place] [phone] PCP - General Physician Machined Parts Quality Inspector 09/07/24 documented as of this encounter
--- OUTSIDE RECORDS SUMMARY | 2024-11-09 16:59 | XMS_ITS | Encounter Summary ---
Author Organization [employer] Address [address] [place] [address] Care Team Providers Care Surgical Oncologist Name Role Phone Blily Fraga Primary Care Provider Encounter Details Date Type Department Care Team (Late st Contact Info) Description 11/07/2024 Lab Requisition [facility] - Main Lab [address] [place] [address] Chaya Kramer MD [address] [address] Heart failure, unspecified (CMS/HCC) Social History Tobacco [...] Associated Diagnosis Comments COMPLETE BLOOD COUNT Routine 11/09/2024 9:09 AM EST Heart failure, unspecified (CMS/HCC) BASIC METABOLIC PANEL Routine 11/09/2024 9:09 AM EST Heart failure, unspecified (CMS/HCC) documented in this encounter Results * (ABNORMAL) Complete blood count (11/09/2024 9:09 AM EST) WBC 6.0 4.8 - 10.8 K/[facility] LAB HEMETOLOGY METHOD 11/09/2024 1:59 PM EST [facility] RBC 3.80(L) 4.50 - 5.50 M/mcL LAB HEMETOLOGY METHOD 11/09/2024 1:59 PM EST [facility] Hemoglobin 11.3(L) 13.5 - 17.5 g/dL LAB HEMETOLOGY METHOD 11/09/2024 1:59 PM [facility] Hematocrit 36.3(L) 42.0 - 54.0 % LAB HEMETOLOGY METHOD 11/09/2024 1:59 PM [facility] MCV 95.5 79.0 - 98.0 FL LAB HEMETOLOGY METHOD 11/09/2024 1:59 PM [facility] MCH 29.7 27.0 - 32.0 pcg LAB HEMETOLOGY METHOD 11/09/2024 1:59 PM [facility] MCHC 31.1(L) 32.0 - 37.0 g/dL LAB HEMETOLOGY METHOD 11/09/2024 1:59 PM [facility] RDW 14.4 11.0 - 15.0 % LAB HEMETOLOGY METHOD 11/09/2024 1:59 PM [facility] Platelets 95(L) 130 - 400 K/mcL LAB HEMETOLOGY METHOD 11/09/2024 1:59 PM [facility] Comment:previously verified by slide MPV 11.8(H) 7.0 - 11.0 FL LAB HEMETOLOGY METHOD 11/09/2024 1:59 PM [facility] NRBC 0.0 <1.0 % LAB HEMETOLOGY METHOD 11/09/2024 1:59 PM [facility] NRBC Absolute 0.00 <0.10 K/mcL LAB HEMETOLOGY METHOD 11/09/2024 1:59 PM [facility] Blood Venous blood specimen / Unknown Venipuncture / Unknown 11/09/2024 9:09 AM EST 11/09/2024 10:57 AM EST us Chaya Kramer MD LAB BLOOD ORDERABLES Fin al Result [facility] [address] [place] [address], [place] [phone] * (ABNORMAL) Basic metabolic panel (11/09/2024 9:09 AM EST) Sodium 135 133 - 145 mmol/L LAB CHEMISTRY METHOD 11/09/2024 12:15 PM EST [facility] Potassium 4.4 3.5 - 5.5 mmol/L LAB CHEMISTRY METHOD 11/09/2024 12:15 PM [facility] Chloride 98 96 - 110 mmol/L LAB CHEMISTRY METHOD 11/09/2024 12:15 PM [facility] CO2 27 21 - 32 mmol/L LAB CHEMISTRY METHOD 11/09/2024 12:15 PM [facility] Anion Gap 10 3 - 11 LAB CHEMISTRY METHOD 11/09/2024 12:15 PM [facility] Glucose 137(H) 70 - 100 mg/dL LAB CHEMISTRY METHOD 11/09/2024 12:15 PM [facility] BUN 35(H) 5 - 25 mg/dL LAB CHEMISTRY METHOD 11/09/2024 12:15 PM [facility] Creatinine 1.26 0.70 - 1.30 mg/dL LAB CHEMISTRY METHOD 11/09/2024 12:15 PM [facility] eGFR 58(L) >=60 mL/min/1. 73m2 LAB CHEMISTRY METHOD 11/09/2024 12:15 PM [facility] Comment:Calculation based on the??Chronic Kidney Disease Epidemiology Collaboration (CKD-EPI) equation refit??without adjustment for race. BUN/Creatinine Ratio 27.8 LAB CHEMISTRY METHOD 11/09/2024 12:15 PM [facility] Calcium 9.4 8.5 - 10.5 mg/dL LAB CHEMISTRY METHOD 11/09/2024 12:15 PM [facility] Blood Venous blood specimen / Unknown Venipuncture / Unknown 11/09/2024 9:09 AM EST 11/09/2024 10:57 AM EST us Chaya Kramer MD LAB BLOOD ORDERABLES Fin al Result [facility] [address] [place] [address], documented in this encounter Visit Diagnoses Diagnosis Heart failure, unspecified (CMS/HCC) Heart failure, unspecified documented in this encounter Care Teams Surgical Oncologist Relationship Specialty Start Date End Date Billy Fraga PA [address] [place] [phone] PCP - General Physician Air Hoist Operator 09/07/24 documented as of this encounter
--- OUTSIDE RECORDS SUMMARY | 2024-11-09 16:59 | XMS_ITS | Encounter Summary ---
Author Organization [employer] Address [address] [place] [address] Care Team Providers Care Physician Support Coordinator Name Role Phone Billy Fraga Primary Care Provider [phone] Encounter Details Date Type Department Care Team (Late st Contact Info) Description 09/12/[address] [facility] - Main Lab [address] [facility] [place] [address] Chaya Kramer MD [address] [phone] Venous insufficiency (chronic) (peripheral) Social History Tobacco [...] Associated Diagnosis Comments COMPREHENSIVE METABOLIC PANEL Routine 09/14/2024 7:10 AM EST Venous insufficiency (chronic) (peripheral) documented in this encounter Results * (ABNORMAL) Comprehensive metabolic panel (09/14/2024 7:10 AM EST) Sodium 136 133 - 145 mmol/L LAB CHEMISTRY METHOD 09/14/2024 10:13 AM EST [facility] Potassium 3.9 3.5 - 5.5 mmol/L LAB CHEMISTRY METHOD 09/14/2024 10:13 AM EST [facility] Chloride 100 96 - 110 mmol/L LAB CHEMISTRY METHOD 09/14/2024 10:13 AM EST [facility] CO2 33(H) 21 - 32 mmol/L LAB CHEMISTRY METHOD 09/14/2024 10:13 AM [facility] Anion Gap 3 3 - 11 LAB CHEMISTRY METHOD 09/14/2024 10:13 AM [facility] Glucose 81 70 - 100 mg/dL LAB CHEMISTRY METHOD 09/14/2024 10:13 AM [facility] BUN 24 5 - 25 mg/dL LAB CHEMISTRY METHOD 09/14/2024 10:13 AM [facility] Creatinine 1.06 0.70 - 1.30 mg/dL LAB CHEMISTRY METHOD 09/14/2024 10:13 AM [facility] eGFR 72 >=60 mL/min/1. 73m2 LAB CHEMISTRY METHOD 09/14/2024 10:13 AM [facility] Comment:Calculation based on the??Chronic Kidney Disease Epidemiology Collaboration (CKD-EPI) equation refit??without adjustment for race. BUN/Creatinine Ratio 22.6 LAB CHEMISTRY METHOD 09/14/2024 10:13 AM [facility] Calcium 9.5 8.5 - 10.5 mg/dL LAB CHEMISTRY METHOD 09/14/2024 10:13 AM [facility] AST (SGOT) 47(H) 10 - 42 unit/L LAB CHEMISTRY METHOD 09/14/2024 10:13 AM [facility] ALT (SGPT) 20 10 - 60 unit/L LAB CHEMISTRY METHOD 09/14/2024 10:13 AM [facility] Alkaline Phosphatase 205(H) 42 - 121 unit/L LAB CHEMISTRY METHOD 09/14/2024 10:13 AM [facility] Total Protein 7.0 6.0 - 8.0 g/dL LAB CHEMISTRY METHOD 09/14/2024 10:13 AM [facility] Albumin 3.6 3.2 - 5.0 g/dL LAB CHEMISTRY METHOD 09/14/2024 10:13 AM [facility] Total Bilirubin 0.8 0.0 - 1.4 mg/dL LAB CHEMISTRY METHOD 09/14/2024 10:13 AM EST [facility] Blood Venous blood specimen / Unknown Venipuncture / Unknown 09/14/2024 7:10 AM EST 09/14/2024 9:30 AM EST us Chaya Kramer MD LAB BLOOD ORDERABLES Fin al Result [facility] [address] [place] [address], documented in this encounter Visit Diagnoses Diagnosis Venous insufficiency (chronic) (peripheral) Unspecified venous (peripheral) insufficiency documented in this encounter Care Teams Physician Support Coordinator Relationship Specialty Start Date End Date Billy Fraga PA [address] [place] [phone] PCP - General Physician House Builder 09/07/24 documented as of this encounter
--- OUTSIDE RECORDS SUMMARY | 2024-11-09 16:59 | XMS_ITS | Encounter Summary ---
Author Organization [employer] Address [address] [place] [address] Care Team Providers Care Mattress Filler Name Role Phone Billy Fraga Primary Care Provider [phone] Encounter Details Date Type Department Care Team (Late st Contact Info) Description 07/27/2024 Lab Requisition [facility] - Main Lab [address] [place] [address] Chaya Kramer MD [address] [address] Heart failure, unspecified (CMS/HCC); Unspecified atrial fibrillation (CMS/HCC) Social History Tobacco Use Types Packs/Day [...] Associated Diagnosis Comments COMPLETE BLOOD COUNT Routine 07/27/2024 6:49 AM EST Heart failure, unspecified (CMS/HCC) Unspecified atrial fibrillation (CMS/HCC) COMPREHENSIVE METABOLIC PANEL Routine 07/27/2024 6:49 AM EST Heart failure, unspecified (CMS/HCC) Unspecified atrial fibrillation (CMS/HCC) documented in this encounter Results * (ABNORMAL) Comprehensive metabolic panel (07/27/2024 6:49 AM EST) Sodium 139 133 - 145 mmol/L LAB CHEMISTRY METHOD 07/27/2024 11:05 AM EST [facility] Potassium 4.4 3.5 - 5.5 mmol/L LAB CHEMISTRY METHOD 07/27/2024 11:05 AM [facility] Chloride 101 96 - 110 mmol/L LAB CHEMISTRY METHOD 07/27/2024 11:05 AM [facility] CO2 29 21 - 32 mmol/L LAB CHEMISTRY METHOD 07/27/2024 11:05 AM [facility] Anion Gap 9 3 - 11 LAB CHEMISTRY METHOD 07/27/2024 11:05 AM [facility] Glucose 77 70 - 100 mg/dL LAB CHEMISTRY METHOD 07/27/2024 11:05 AM [facility] BUN 23 5 - 25 mg/dL LAB CHEMISTRY METHOD 07/27/2024 11:05 AM [facility] Creatinine 0.84 0.70 - 1.30 mg/dL LAB CHEMISTRY METHOD 07/27/2024 11:05 AM [facility] eGFR 90 >=60 mL/min/1. 73m2 LAB CHEMISTRY METHOD 07/27/2024 11:05 AM [facility] Comment:Calculation based on the??Chronic Kidney Disease Epidemiology Collaboration (CKD-EPI) equation refit??without adjustment for race. BUN/Creatinine Ratio 27.4 LAB CHEMISTRY METHOD 07/27/2024 11:05 AM [facility] Calcium 9.5 8.5 - 10.5 mg/dL LAB CHEMISTRY METHOD 07/27/2024 11:05 AM [facility] AST (SGOT) 104(H) 10 - 42 unit/L LAB CHEMISTRY METHOD 07/27/2024 11:05 AM [facility] ALT (SGPT) 37 10 - 60 unit/L LAB CHEMISTRY METHOD 07/27/2024 11:05 AM [facility] Alkaline Phosphatase 214(H) 42 - 121 unit/L LAB CHEMISTRY METHOD 07/27/2024 11:05 AM [facility] Total Protein 6.6 6.0 - 8.0 g/dL LAB CHEMISTRY METHOD 07/27/2024 11:05 AM [facility] Albumin 3.2 3.2 - 5.0 g/dL LAB CHEMISTRY METHOD 07/27/2024 11:05 AM [facility] Total Bilirubin 0.5 0.0 - 1.4 mg/dL LAB CHEMISTRY METHOD 07/27/2024 11:05 AM [facility] Blood Venous blood specimen / Unknown Venipuncture / Unknown 07/27/2024 6:49 AM EST 07/27/2024 9:36 AM EST us Chaya Kramer MD LAB BLOOD ORDERABLES Fin al Result [facility] [address] [place] [address], [place] [phone] * (ABNORMAL) Complete blood count (07/27/2024 6:49 AM EST) WBC 7.8 4.8 - 10.8 K/mcL LAB HEMETOLOGY METHOD 07/27/2024 11:26 AM [facility] RBC 4.00(L) 4.50 - 5.50 M/mcL LAB HEMETOLOGY METHOD 07/27/2024 11:26 AM [facility] Hemoglobin 11.7(L) 13.5 - 17.5 g/dL LAB HEMETOLOGY METHOD 07/27/2024 11:26 AM [facility] Hematocrit 37.7(L) 42.0 - 54.0 % LAB HEMETOLOGY METHOD 07/27/2024 11:26 AM [facility] MCV 93.5 79.0 - 98.0 FL LAB HEMETOLOGY METHOD 07/27/2024 11:26 AM [facility] MCH 29.0 27.0 - 32.0 pcg LAB HEMETOLOGY METHOD 07/27/2024 11:26 AM [facility] MCHC 31.0(L) 32.0 - 37.0 g/dL LAB HEMETOLOGY METHOD 07/27/2024 11:26 AM [facility] RDW 15.0 11.0 - 15.0 % LAB HEMETOLOGY METHOD 07/27/2024 11:26 AM [facility] Platelets 86(L) 130 - 400 K/mcL LAB HEMETOLOGY METHOD 07/27/2024 11:26 AM [facility] Comment:reviewed by slide MPV 12.7(H) 7.0 - 11.0 FL LAB HEMETOLOGY METHOD 07/27/2024 11:26 AM [facility] NRBC 0.0 <1.0 % LAB HEMETOLOGY METHOD 07/27/2024 11:26 AM [facility] NRBC Absolute 0.00 <0.10 K/mcL LAB HEMETOLOGY METHOD 07/27/2024 11:26 AM [facility] Blood Venous blood specimen / Unknown Venipuncture / Unknown 07/27/2024 6:49 AM EST 07/27/2024 9:36 AM EST Chaya Kramer MD LAB BLOOD ORDERABLES Fin al Result [facility] [address] [place] [address], documented in this encounter Visit Diagnoses Diagnosis Heart failure, unspecified (CMS/HCC) Heart failure, unspecified Unspecified atrial fibrillation (CMS/HCC) documented in this encounter Care Teams Mattress Filler Relationship Specialty Start Date End Date Billy Fraga PA [address] [place] [phone] PCP - General Physician Housekeeper 09/07/24 documented as of this encounter
--- OUTSIDE RECORDS SUMMARY | 2024-11-09 16:59 | XMS_ITS | Encounter Summary ---
Author Organization [employer] Address [address] [place] [address] Care Team Providers Care Practice Billing Associate Name Role Phone Billy Fraga Primary Care Provider Encounter Details Date Type Department Care Team (Late st Contact Info) Description 10/30/2024 Lab Requisition [facility] - Main Lab [address] [facility] [place] [address] Chaya Kramer MD [address] [phone] Heart failure, unspecified (CMS/HCC) Social History Tobacco [...] Associated Diagnosis Comments BASIC METABOLIC PANEL Routine 11/02/2024 8:42 AM EST Heart failure, unspecified (CMS/HCC) documented in this encounter Results * (ABNORMAL) Basic metabolic panel (11/02/2024 8:42 AM EST) Sodium 136 133 - 145 mmol/L LAB CHEMISTRY METHOD 11/02/2024 11:39 AM EST [facility] Potassium 3.7 3.5 - 5.5 mmol/L LAB CHEMISTRY METHOD 11/02/2024 11:39 AM EST [facility] Chloride 99 96 - 110 mmol/L LAB CHEMISTRY METHOD 11/02/2024 11:39 AM EST [facility] CO2 34(H) 21 - 32 mmol/L LAB CHEMISTRY METHOD 11/02/2024 11:39 AM [facility] Anion Gap 3 3 - 11 LAB CHEMISTRY METHOD 11/02/2024 11:39 AM [facility] Glucose 126(H) 70 - 100 mg/dL LAB CHEMISTRY METHOD 11/02/2024 11:39 AM [facility] BUN 23 5 - 25 mg/dL LAB CHEMISTRY METHOD 11/02/2024 11:39 AM [facility] Creatinine 1.07 0.70 - 1.30 mg/dL LAB CHEMISTRY METHOD 11/02/2024 11:39 AM [facility] eGFR 71 >=60 mL/min/1. 73m2 LAB CHEMISTRY METHOD 11/02/2024 11:39 AM [facility] Comment:Calculation based on the??Chronic Kidney Disease Epidemiology Collaboration (CKD-EPI) equation refit??without adjustment for race. BUN/Creatinine Ratio 21.5 LAB CHEMISTRY METHOD 11/02/2024 11:39 AM [facility] Calcium 9.3 8.5 - 10.5 mg/dL LAB CHEMISTRY METHOD 11/02/2024 11:39 AM [facility] Blood Venous blood specimen / Unknown Venipuncture / Unknown 11/02/2024 8:42 AM EST 11/02/2024 10:36 AM EST us Cahya Kramer MD LAB BLOOD ORDERABLES Fin al Result [facility] [address] [place] [address], documented in this encounter Visit Diagnoses Diagnosis Heart failure, unspecified (CMS/HCC) Heart failure, unspecified documented in this encounter Care Teams Practice Billing Associate Relationship Specialty Start Date End Date Billy Fraga PA [address] [place] [phone] PCP - General Physician Firmware Software Verification Engineer 09/07/24 documented as of this encounter
--- OUTSIDE RECORDS SUMMARY | 2024-11-09 16:59 | XMS_ITS | Encounter Summary ---
Author Organization [facility] [facility] Address [address] [place] [address] Care Team Providers Care Occupational Nurse Name Role Phone Billy Fraga Primary Care Provider Encounter Details Date Type Department Care Team (Late st Contact Info) Description 09/07/2024 Lab Requisition [facility] - Main Lab [address] [facility] [place] [address] Social History Tobacco Use Types Packs/Day Years Used Date Smoking Tobacco: Never Assessed Sex and Gender Information Value Date Recorded Sex Assigned at Not on file Legal Sex Male 1:09 PM EST Gender Identity Not on file Sexual Orientation Not on file documented as of this encounter Plan of Treatment Not on file documented as of this encounter Visit Diagnoses Not on filedocumented in this encounter Care Teams Occupational Nurse Relationship Specialty Start Date End Date Billy Fraga PA [address] [place] [phone] PCP - General Physician Electric Meter Tester 09/07/24 documented as of this encounter
--- OUTSIDE RECORDS SUMMARY | 2024-11-09 16:59 | XMS_ITS | Encounter Summary ---
Author Organization [employer] Address [address] [place] [address] Care Team Providers Care Dredge Lever Operator Name Role Phone Billy Fraga Primary Care Provider [phone] Encounter Details Date Type Department Care Team (Late st Contact Info) Description 10/13/2024 Lab Requisition [facility] - Main Lab [address] [facility] [place] [address] Chaya Kramer MD [address] [phone] Heart failure, unspecified (CMS/HCC) Social History Tobacco [...] Associated Diagnosis Comments BASIC METABOLIC PANEL Routine 10/13/2024 5:18 AM EST Heart failure, unspecified (CMS/HCC) documented in this encounter Results * (ABNORMAL) Basic metabolic panel (10/13/2024 5:18 AM EST) Sodium 137 133 - 145 mmol/L LAB CHEMISTRY METHOD 10/13/2024 9:39 AM EST [facility] Potassium 4.1 3.5 - 5.5 mmol/L LAB CHEMISTRY METHOD 10/13/2024 9:39 AM EST [facility] Chloride 99 96 - 110 mmol/L LAB CHEMISTRY METHOD 10/13/2024 9:39 AM EST [facility] CO2 33(H) 21 - 32 mmol/L LAB CHEMISTRY METHOD 10/13/2024 9:39 AM [facility] Anion Gap 5 3 - 11 LAB CHEMISTRY METHOD 10/13/2024 9:39 AM [facility] Glucose 120(H) 70 - 100 mg/dL LAB CHEMISTRY METHOD 10/13/2024 9:39 AM [facility] BUN 26(H) 5 - 25 mg/dL LAB CHEMISTRY METHOD 10/13/2024 9:39 AM [facility] Creatinine 0.98 0.70 - 1.30 mg/dL LAB CHEMISTRY METHOD 10/13/2024 9:39 AM [facility] eGFR 79 >=60 mL/min/1. 73m2 LAB CHEMISTRY METHOD 10/13/2024 9:39 AM [facility] Comment:Calculation based on the??Chronic Kidney Disease Epidemiology Collaboration (CKD-EPI) equation refit??without adjustment for race. BUN/Creatinine Ratio 26.5 LAB CHEMISTRY METHOD 10/13/2024 9:39 AM [facility] Calcium 9.5 8.5 - 10.5 mg/dL LAB CHEMISTRY METHOD 10/13/2024 9:39 AM [facility] Blood Venous blood specimen / Unknown Venipuncture / Unknown 10/13/2024 5:18 AM EST 10/13/2024 8:51 AM EST us Chaya Kramer MD LAB BLOOD ORDERABLES Fin al Result [facility] [address] [place] [address], documented in this encounter Visit Diagnoses Diagnosis Heart failure, unspecified (CMS/HCC) Heart failure, unspecified documented in this encounter Care Teams Dredge Lever Operator Relationship Specialty Start Date End Date Billy Fraga PA [address] [place] [phone] PCP - General Physician Power Generation Technician 09/07/24 documented as of this encounter
--- OUTSIDE RECORDS SUMMARY | 2024-11-09 16:59 | XMS_ITS | Encounter Summary ---
Author Organization [employer] Address [address] [place] [address] Care Team Providers Care Superintendent Service Name Role Phone Billy Fraga Primary Care Provider [phone] Encounter Details Date Type Department Care Team (Late st Contact Info) Description 10/19/2024 Lab Requisition [facility] - Main Lab [address] [facility] [place] [address] Chaya Kramer MD [address] [address] Heart failure, unspecified (CMS/HCC) Social History Tobacco [...] Associated Diagnosis Comments BASIC METABOLIC PANEL Routine 10/19/2024 9:53 AM EST Heart failure, unspecified (CMS/HCC) documented in this encounter Results * (ABNORMAL) Basic metabolic panel (10/19/2024 9:53 AM EST) Sodium 138 133 - 145 mmol/L LAB CHEMISTRY METHOD 10/19/2024 4:17 PM EST [facility] Potassium 3.8 3.5 - 5.5 mmol/L LAB CHEMISTRY METHOD 10/19/2024 4:17 PM EST [facility] Chloride 100 96 - 110 mmol/L LAB CHEMISTRY METHOD 10/19/2024 4:17 PM EST [facility] CO2 29 21 - 32 mmol/L LAB CHEMISTRY METHOD 10/19/2024 4:17 PM [facility] Anion Gap 9 3 - 11 LAB CHEMISTRY METHOD 10/19/2024 4:17 PM [facility] Glucose 109(H) 70 - 100 mg/dL LAB CHEMISTRY METHOD 10/19/2024 4:17 PM [facility] BUN 28(H) 5 - 25 mg/dL LAB CHEMISTRY METHOD 10/19/2024 4:17 PM [facility] Creatinine 1.02 0.70 - 1.30 mg/dL LAB CHEMISTRY METHOD 10/19/2024 4:17 PM [facility] eGFR 75 >=60 mL/min/1. 73m2 LAB CHEMISTRY METHOD 10/19/2024 4:17 PM [facility] Comment:Calculation based on the??Chronic Kidney Disease Epidemiology Collaboration (CKD-EPI) equation refit??without adjustment for race. BUN/Creatinine Ratio 27.5 LAB CHEMISTRY METHOD 10/19/2024 4:17 PM [facility] Calcium 9.2 8.5 - 10.5 mg/dL LAB CHEMISTRY METHOD 10/19/2024 4:17 PM [facility] Blood Venous blood specimen / Unknown Venipuncture / Unknown 10/19/2024 9:53 AM EST 10/19/2024 11:19 AM EST us Chaya Kramer MD LAB BLOOD ORDERABLES Fin al Result [facility] [address] [place] [address], documented in this encounter Visit Diagnoses Diagnosis Heart failure, unspecified (CMS/HCC) Heart failure, unspecified documented in this encounter Care Teams Superintendent Service Relationship Specialty Start Date End Date Billy Fraga PA [address] [place] [phone] PCP - General Physician College Football Coach 09/07/24 documented as of this encounter
--- OUTSIDE RECORDS SUMMARY | 2024-11-09 16:59 | XMS_ITS | Patient Health Record ---
Author Organization [facility] [place] Address [address] [place] [address] Care Team Providers Care Doughnut Icer Machine Name Role Phone Slava Garcia MD Primary Care Provider Cruz Marie Unavailable [phone] Allergies Allergen (clinical drug ingredient) Drug/Non Drug Allergy documented on EMR Reaction Allergy Type Onset Date Status atorvastatin Atorvastatin Calcium Unknown Drug Allergy Active Non-steroidal anti-inflammatory agent (FN) NSAIDs liver Drug Allergy Active Reason For Referral No Information Medications Medication SIG (Take, Route, Frequency, Duration) Notes Start Date End Date Status oxyCODONE HCl 15 MG 1 tablet Orally ever y 6 hrs Active Chlorthalidone 25 MG as directed Orally Active Lidocaine & Prilocaine Cream Active Losartan Potassium 100 MG 1 tablet Orall y Once a day Active Coumadin Active Social History Tobacco Use: Social History Observation Description Date Details (start date - stop date) Former Smoker NA - NA Tobacco Use/Smoking Question Answer Notes Are you a: former smoker Alcohol Screen Question Answer Notes Did you have a drink containing alcohol in the p ast year? No Points 0 Interpretation Negative Tobacco use other than smoking: Question Answer Notes Are you an other tobacco user? 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 Problem Atherosclerosis of artery of both lower extremities (I70.203) Active confirmed Plan Of Treatment Pending Test Test Name Order Date [id number] OF HEMATOMA/FLUID 023 Insurance Providers Payer Name Payer Address Payer Phone Subscriber Number Group Number Insured Name Patient Relationship to Insured Coverage Start Date Coverage End Date [facility] [address] [place] [phone] [id number] Jeovanny Gonzales Self - patient is the insured Medical (General) History Medical History History ICD Code Back,Hip,and Knee pain Measles Mumps Chicken pox Sciatica
--- OUTSIDE RECORDS SUMMARY | 2024-11-09 16:59 | XMS_ITS | Encounter Summary ---
Author Organization [employer] [facility] Address [address] [place] [address] Care Team Providers Care Internet Webmaster Name Role Phone Billy Fraga Primary Care Provider Encounter Details Date Type Department Care Team (Latest Contact Info) Description 09/07/2024 Lab Requisition [facility] - Main Lab [address] [place] [address] Billy Fraga PA [address] [place] [phone] Venous insufficiency (chronic) (peripheral); Other termite technician (current) drug therapy Social History Tobacco Use Types Packs/Day Years [...] Associated Diagnosis Comments COMPREHENSIVE METABOLIC PANEL Routine 09/07/2024 7:55 AM EST Venous insufficiency (chronic) (peripheral) Other termite technician (current) drug therapy documented in this encounter Results * (ABNORMAL) Comprehensive metabolic panel (09/07/2024 7:55 AM EST) Sodium 139 133 - 145 mmol/L LAB CHEMISTRY METHOD 09/07/2024 11:01 AM EST [facility] Potassium 3.7 3.5 - 5.5 mmol/L LAB CHEMISTRY METHOD 09/07/2024 11:01 AM EST [facility] Chloride 101 96 - 110 mmol/L LAB CHEMISTRY METHOD 09/07/2024 11:01 AM EST [facility] CO2 32 21 - 32 mmol/L LAB CHEMISTRY METHOD 09/07/2024 11:01 AM [facility] Anion Gap 6 3 - 11 LAB CHEMISTRY METHOD 09/07/2024 11:01 AM [facility] Glucose 95 70 - 100 mg/dL LAB CHEMISTRY METHOD 09/07/2024 11:01 AM [facility] BUN 17 5 - 25 mg/dL LAB CHEMISTRY METHOD 09/07/2024 11:01 AM [facility] Creatinine 1.03 0.70 - 1.30 mg/dL LAB CHEMISTRY METHOD 09/07/2024 11:01 AM [facility] eGFR 74 >=60 mL/min/1. 73m2 LAB CHEMISTRY METHOD 09/07/2024 11:01 AM [facility] Comment:Calculation based on the??Chronic Kidney Disease Epidemiology Collaboration (CKD-EPI) equation refit??without adjustment for race. BUN/Creatinine Ratio 16.5 LAB CHEMISTRY METHOD 09/07/2024 11:01 AM [facility] Calcium 9.0 8.5 - 10.5 mg/dL LAB CHEMISTRY METHOD 09/07/2024 11:01 AM [facility] AST (SGOT) 35 10 - 42 unit/L LAB CHEMISTRY METHOD 09/07/2024 11:01 AM [facility] ALT (SGPT) 18 10 - 60 unit/L LAB CHEMISTRY METHOD 09/07/2024 11:01 AM [facility] Alkaline Phosphatase 174(H) 42 - 121 unit/L LAB CHEMISTRY METHOD 09/07/2024 11:01 AM [facility] Total Protein 6.5 6.0 - 8.0 g/dL LAB CHEMISTRY METHOD 09/07/2024 11:01 AM [facility] Albumin 3.2 3.2 - 5.0 g/dL LAB CHEMISTRY METHOD 09/07/2024 11:01 AM [facility] Total Bilirubin 0.5 0.0 - 1.4 mg/dL LAB CHEMISTRY METHOD 09/07/2024 11:01 AM EST [facility] Blood Venous blood specimen / Unknown Venipuncture / Unknown 09/07/2024 7:55 AM EST 09/07/2024 9:20 AM EST us Billy MAGDALENO LAB BLOOD ORDERABLES Final Re sult [facility] [address] [place] [address], documented in this encounter Visit Diagnoses Diagnosis Venous insufficiency (chronic) (peripheral) Unspecified venous (peripheral) insufficiency Other prison (current) drug therapy documented in this encounter Care Teams Internet Webmaster Relationship Specialty Start Date End Date Billy Fraga PA [address] [place] [phone] PCP - General Physician Ski Maker Wood 09/07/24 documented as of this encounter
--- OUTSIDE RECORDS SUMMARY | 2024-11-09 16:59 | XMS_ITS | Clinical Summary ---
Author Organization [address] Address [address] [place] [address] Phone Care Team Providers Care Senior Bioinformatics Scientist Name Role Phone Billy Fraga Primary Care Provider [phone] Encounters Date Type Department Care Team Description 11/07/2024 Lab Requisition [facility] - Main Lab [address] [place] [phone] Chaya Kramer MD Heart failure, unspecified (CMS/HCC) 10/30/2024 Lab Requisition [facility] Lab [address] [place] [phone] Chaya Kramer MD Heart failure, unspecified (CMS/HCC) 10/23/2024 Lab Requisition [facility] - Main Lab [address] [place] [phone] Chaya Kramer MD Heart failure, unspecified (CMS/HCC); Venous insufficiency (chronic) (peripheral) 10/19/2024 Lab Requisition [facility] - Main Lab [address] [place] [phone] Chaya Kramer MD Heart failure, unspecified (CMS/HCC) 10/13/2024 Lab Requisition [facility] - Main Lab [address] [place] [phone] Chaya Kramer MD Heart failure, unspecified (CMS/HCC) 10/06/2024 Lab Requisition [facility] - Main Lab [address] [place] [phone] Chaya Kramer MD Heart failure, unspecified (CMS/HCC) 09/20/2024 Lab Requisition [facility] - Main Lab [address] [place] [phone] Chaya Kramer MD Cellulitis, unspecified 09/18/2024 Lab Requisition [facility] Main Lab [address] [place] [phone] Chaya Kramer MD Venous insufficiency (chronic) (peripheral) 09/12/2024 Lab Requisition [facility] Lab [address] [place] [phone] Chaya Kramer MD Venous insufficiency (chronic) (peripheral) 09/07/2024 Lab Requisition [facility] Lab [address] [place] [phone] Billy Fraga PA Venous insufficiency (chronic) (peripheral); Other terminal gauger (current) drug therapy 09/07/2024 Lab Requisition [facility] Lab [address] [place] [phone] 09/04/2024 Lab Requisition [facility] Lab [address] [place] [phone] Chaya Kramer MD Venous insufficiency (chronic) (peripheral) from Last 3 Months Social History Tobacco Use Types Packs/Day Years Used Date Smoking Tobacco: Never Assessed Sex and Gender Information Value Date Recorded Sex Assigned at Not on file Legal Sex Male 1:09 PM EST Gender Identity Not on file Sexual Orientation Not on file Plan of Treatment Health Maintenance Due Date Last Done Comments Zoster Vaccines (2 of 3) 03/13/2012 01/17/2012 Pneumococcal Vaccine: 50+ Years (2 of 2 - PCV) 01/16/2013 01/17/2012 RSV Immunization Patients 60+ Years Old (1 - 1-dose 75+ series) 2021 COVID-19 Vaccine ( - 2023- season) 2024 Influenza Vaccine (#1) 2024 , 06/23/2015, 07/25/2011, Additional history exists Cholesterol Screening (Lipid Panel) 07/23/2024 Depression Screening 07/23/2024 Falls Risk Assessment 07/23/2024 Hepatitis C Screening 07/23/2024 Medicare Annual Wellness Visit 07/23/2024 Social Influencers of Health Screening 07/23/2024 DTaP,Tdap,and Td Vaccines (3 - Td or Tdap) 06/20/2025 06/20/2015, 01/06/2003 Hypertension/CHF/CAD Annual BMP Blood Test 11/02/2025 11/09/2024, 11/02/2024, 10/26/2024, Additional history exists HIB Vaccines Aged Out No longer eligi ble based on patient's age to complete this topic HPV Vaccines Aged Out No longer eligi ble based on patient's age to complete this topic Hepatitis A Vaccines Aged Out No long er eligible based on patient's age to complete this topic Hepatitis B Vaccines Aged Out No long er eligible based on patient's age to complete this topic IPV Vaccines Aged Out No longer eligi ble based on patient's age to complete this topic MMR Vaccines Aged Out No longer eligi ble based on patient's age to complete this topic Meningococcal ACWY Vaccine Aged Out N o longer eligible based on patient's age to complete this topic Meningococcal B Vacine Aged Out No lo nger eligible based on patient's age to complete this topic RSV Immunization Patients Under 20 months Aged Out No longer eligible based on patient's age to complete this topic Varicella Vaccines Aged Out No longer eligible based on patient's age to complete this topic Procedures Procedure Name Priority Date/Time Associated Diagnosis Comments COMPLETE BLOOD COUNT Routine 11/09/2024 9:09 AM EST Heart failure, unspecified (CMS/HCC) BASIC METABOLIC PANEL Routine 11/09/2024 9:09 AM EST Heart failure, unspecified (CMS/HCC) BASIC METABOLIC PANEL Routine 11/02/2024 8:42 AM EST Heart failure, unspecified (CMS/HCC) COMPLETE BLOOD COUNT Routine 10/26/2024 10:12 AM EST Heart failure, unspecified (CMS/HCC) Venous insufficiency (chronic) (peripheral) BASIC METABOLIC PANEL Routine 10/26/2024 10:12 AM EST Heart failure, unspecified (CMS/HCC) Venous insufficiency (chronic) (peripheral) BASIC METABOLIC PANEL Routine 10/19/2024 9:53 AM EST Heart failure, unspecified (CMS/HCC) BASIC METABOLIC PANEL Routine 10/13/2024 5:18 AM EST Heart failure, unspecified (CMS/HCC) BASIC METABOLIC PANEL Routine 10/06/2024 5:18 AM EST Heart failure, unspecified (CMS/HCC) COMPREHENSIVE METABOLIC PANEL Routine 09/21/2024 8:53 AM EST Venous insufficiency (chronic) (peripheral) COMPREHENSIVE METABOLIC PANEL Routine 09/20/2024 7:22 AM EST Cellulitis, unspecified COMPLETE BLOOD COUNT Routine 09/20/2024 7:22 AM EST Cellulitis, unspecified COMPREHENSIVE METABOLIC PANEL Routine 09/14/2024 7:10 AM EST Venous insufficiency (chronic) (peripheral) COMPREHENSIVE METABOLIC PANEL Routine 09/07/2024 7:55 AM EST Venous insufficiency (chronic) (peripheral) Other alf (current) drug therapy COMPREHENSIVE METABOLIC PANEL Routine 09/04/2024 5:00 AM EST Venous insufficiency (chronic) (peripheral) COMPLETE BLOOD COUNT Routine 09/04/2024 5:00 AM EST Venous insufficiency (chronic) (peripheral) from Last 3 Months Results * (ABNORMAL) Complete blood count (11/09/2024 9:09 AM EST) Only the most recent of4 resultswithin the time period is included. [facility] WBC 6.0 4.8 - 10.8 K/mcL LAB HEMETOLOGY METHOD 11/09/2024 1:59 PM EST [facility] RBC 3.80(L) 4.50 - 5.50 M/mcL LAB HEMETOLOGY METHOD 11/09/2024 1:59 PM [facility] Hemoglobin 11.3(L) 13.5 - 17.5 g/dL LAB HEMETOLOGY METHOD 11/09/2024 1:59 PM [facility] Hematocrit 36.3(L) 42.0 - 54.0 % LAB HEMETOLOGY METHOD 11/09/2024 1:59 PM [facility] MCV 95.5 79.0 - 98.0 FL LAB HEMETOLOGY METHOD 11/09/2024 1:59 PM [facility] MCH 29.7 27.0 - 32.0 pcg LAB HEMETOLOGY METHOD 11/09/2024 1:59 PM [facility] MCHC 31.1(L) 32.0 - 37.0 g/dL LAB HEMETOLOGY METHOD 11/09/2024 1:59 PM [facility] RDW 14.4 11.0 - 15.0 % LAB HEMETOLOGY METHOD 11/09/2024 1:59 PM [facility] Platelets 95(L) 130 - 400 K/mcL LAB HEMETOLOGY METHOD 11/09/2024 1:59 PM [facility] Comment:previously verified by slide MPV 11.8(H) 7.0 - 11.0 FL LAB HEMETOLOGY METHOD 11/09/2024 1:59 PM [facility] NRBC 0.0 <1.0 % LAB HEMETOLOGY METHOD 11/09/2024 1:59 PM [facility] NRBC Absolute 0.00 <0.10 K/mcL LAB HEMETOLOGY METHOD 11/09/2024 1:59 PM [facility] Blood Venous blood specimen / Unknown Venipuncture / Unknown 11/09/2024 9:09 AM EST 11/09/2024 10:57 AM EST us Chaya Kramer MD LAB BLOOD ORDERABLES Fin al Result [facility] [address] [place] [address], * (ABNORMAL) Basic metabolic panel (11/09/2024 9:09 AM EST) Only the most recent of6 resultswithin the time period is included. Sodium 135 133 - 145 mmol/L LAB CHEMISTRY METHOD 11/09/2024 12:15 PM EST [facility] Potassium 4.4 3.5 - 5.5 mmol/L LAB CHEMISTRY METHOD 11/09/2024 12:15 PM [facility] Chloride 98 96 - 110 mmol/L LAB CHEMISTRY METHOD 11/09/2024 12:15 PM [facility] CO2 27 21 - 32 mmol/L LAB CHEMISTRY METHOD 11/09/2024 12:15 PM [facility] Anion Gap 10 3 - 11 LAB CHEMISTRY METHOD 11/09/2024 12:15 PM [facility] Glucose 137(H) 70 - 100 mg/dL LAB CHEMISTRY METHOD 11/09/2024 12:15 PM [facility] BUN 35(H) 5 - 25 mg/dL LAB CHEMISTRY METHOD 11/09/2024 12:15 PM [facility] Creatinine 1.26 0.70 - 1.30 mg/dL LAB CHEMISTRY METHOD 11/09/2024 12:15 PM [facility] eGFR 58(L) >=60 mL/min/1. 73m2 LAB CHEMISTRY METHOD 11/09/2024 12:15 PM [facility] Comment:Calculation based on the??Chronic Kidney Disease Epidemiology Collaboration (CKD-EPI) equation refit??without adjustment for race. BUN/Creatinine Ratio 27.8 LAB CHEMISTRY METHOD 11/09/2024 12:15 PM [facility] Calcium 9.4 8.5 - 10.5 mg/dL LAB CHEMISTRY METHOD 11/09/2024 12:15 PM [facility] Blood Venous blood specimen / Unknown Venipuncture / Unknown 11/09/2024 9:09 AM EST 11/09/2024 10:57 AM EST us Chaya Kramer MD LAB BLOOD ORDERABLES Fin al Result [facility] [address] [place] [address], [place] [phone] * (ABNORMAL) Comprehensive metabolic panel (09/21/2024 8:53 AM EST) Only the most recent of5 resultswithin the time period is included. Sodium 137 133 - 145 mmol/L LAB CHEMISTRY METHOD 09/21/2024 12:31 PM [facility] Potassium 3.5 3.5 - 5.5 mmol/L LAB CHEMISTRY METHOD 09/21/2024 12:31 PM [facility] Chloride 100 96 - 110 mmol/L LAB CHEMISTRY METHOD 09/21/2024 12:31 PM [facility] CO2 31 21 - 32 mmol/L LAB CHEMISTRY METHOD 09/21/2024 12:31 PM [facility] Anion Gap 6 3 - 11 LAB CHEMISTRY METHOD 09/21/2024 12:31 PM [facility] Glucose 142(H) 70 - 100 mg/dL LAB CHEMISTRY METHOD 09/21/2024 12:31 PM [facility] BUN 23 5 - 25 mg/dL LAB CHEMISTRY METHOD 09/21/2024 12:31 PM [facility] Creatinine 1.07 0.70 - 1.30 mg/dL LAB CHEMISTRY METHOD 09/21/2024 12:31 PM [facility] eGFR 71 >=60 mL/min/1. 73m2 LAB CHEMISTRY METHOD 09/21/2024 12:31 PM EST [facility] Comment:Calculation based on the??Chronic Kidney Disease Epidemiology Collaboration (CKD-EPI) equation refit??without adjustment for race. BUN/Creatinine Ratio 21.5 LAB CHEMISTRY METHOD 09/21/2024 12:31 PM [facility] Calcium 8.9 8.5 - 10.5 mg/dL LAB CHEMISTRY METHOD 09/21/2024 12:31 PM [facility] AST (SGOT) 40 10 - 42 unit/L LAB CHEMISTRY METHOD 09/21/2024 12:31 PM [facility] ALT (SGPT) 18 10 - 60 unit/L LAB CHEMISTRY METHOD 09/21/2024 12:31 PM [facility] Alkaline Phosphatase 181(H) 42 - 121 unit/L LAB CHEMISTRY METHOD 09/21/2024 12:31 PM [facility] Total Protein 6.6 6.0 - 8.0 g/dL LAB CHEMISTRY METHOD 09/21/2024 12:31 PM [facility] Albumin 3.3 3.2 - 5.0 g/dL LAB CHEMISTRY METHOD 09/21/2024 12:31 PM [facility] Total Bilirubin 0.6 0.0 - 1.4 mg/dL LAB CHEMISTRY METHOD 09/21/2024 12:31 PM [facility] Blood Venous blood specimen / Unknown Venipuncture / Unknown 09/21/2024 8:53 AM EST 09/21/2024 12:31 PM EST us Chaya Kramer MD LAB BLOOD ORDERABLES Fin al Result [facility] [address] [place] [address], from Last 3 Months Insurance [facility] Care Teams Senior Bioinformatics Scientist Relationship Specialty Start Date End Date Billy Fraga PA [address] [place] [phone] PCP - General Physician Igniter Capper 09/07/24
[2024-11-09 17:14] LABS: Alanine Aminotransferase 13 U/L (0-40); Albumin Level 3.8 g/dL (3.5-5.0); Aspartate Amino Transferase 58 U/L (5-37); Bilirubin Direct 0.2 mg/dL (0.0-0.5); Bilirubin Total 1.1 mg/dL (0.0-1.0)
[2024-11-09 17:25] LABS: Alkaline Phosphatase 155 U/L (39-117); Anion Gap 21 (12-20)
[2024-11-09 17:25] LABS: B Type Natriuretic Peptide 208 pg/mL (<100)
[2024-11-09 17:30] LABS: Blood Urea Nitrogen 36 mg/dL (9-16); Calcium 9.5 mg/dL (8.4-10.2); Carbon Dioxide 18 mmol/L (22-29); Chloride 100 mmol/L (96-108); Creatinine Clr Calc Pharmacy 57.1; Estimated Glomerular Filt Rate 59; Glucose Random 90 mg/dL (60-115); Potassium 5.1 mmol/L (3.3-5.1); Sodium 134 mmol/L (135-145)
--- NOTE | 2024-11-09 18:19 | PHA.MEDREC ---
Addendum entered by Ying Moore RPh 11/09/24 18:53: [facility] reviewed Original Note: Pharmacy Consult ? Medication Reconciliation Pharmacy has completed the medication reconciliation. Utilized list from [facility].
--- NOTE | 2024-11-09 18:38 | PC.NURSE ---
pt incontinent of urine. bed change completed. dameon care performed. pt noted to be extremely hot to the touch. rectal temp obtained displaying 101.8. pt also noted to have increased wob w/ exertion and position changes. pt placed on 3L via NC for supplemental O2. good effect noted. pt changed/repositioned to comfort. provider notified/aware of findings.
[2024-11-09] MEDS: Ibuprofen 600 MG TABLET PO (20:00)
--- NOTE | 2024-11-09 21:10 | PM.IMHP ---
History of Present Illness Date of Service: 11/09/24 Attending physician on admission: Lyle Houser Chief Complaint: 10 lb weight gain, AMS Patient is a 79-year-old male with a past medical history significant for venous insufficiency, chronic pain syndrome, AFib, CHF, HTN, urinary retention and BPH, GERD, and metastatic pancreatic cancer, who presented to the ED due to a 10 lb weight gain in 1 day as well as altered mental status. He denies any upper respiratory symptoms including headache, congestion, sore throat, rhinorrhea, cough or congestion. He also denies any urinary symptoms including frequency, urgency, dysuria or hematuria. He does report bilateral lower extremity edema. He denies any shortness of breath. Unclear if history is accurate due to metabolic encephalopathy however he was oriented to person, place and time. Review of Systems Constitutional: Constitutional: Denies body ache(s), Denies chills, Denies fatigue, Reports fever(s) and Denies headache(s) Eyes: Eyes: Denies change in vision and Denies photophobia ENT: Denies headache(s), Denies nasal congestion, Denies nasal discharge, Denies neck pain and Denies sore throat Cardiovascular: Cardiovascular: Denies chest pain, Denies rapid heart rate, Reports leg edema, Denies lightheadedness and Denies dyspnea Respiratory: Respiratory: Denies chest congestion, Denies cough, Denies dyspnea and Denies wheezing Gastrointestinal: Gastrointestinal: Denies diarrhea, Denies nausea and Denies vomiting Genitourinary: Genitourinary: Denies hematuria, Denies difficulty urinating, Denies dysuria, Denies urinary frequency and Denies urinary urgency Musculoskeletal: Musculoskeletal: Denies myalgias and Denies neck pain Integumentary/Breasts: Skin/Breast: Denies rash Neurologic: Reports confusion and Denies headache(s) Psychiatric: Psychiatric: Reports confusion Endocrine: Endocrine: Denies fatigue Hematologic/Lymphatic: Hematologic/Lymphatic: Denies easy bleeding and Denies easy bruising Allergic/Immunologic: Allergic/Immunologic: Denies wheezing [facility] Medical History (Updated 11/09/24 @ 21:28 by Belen Prescott PA-C) A-fib BPH (benign prostatic hyperplasia) 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 CHF (congestive heart failure) Social History Smoked in Last 30 Days: No Use of substances other than those prescribed or required for medical reasons: No Advance Directives: No Advance Directives Information Provided: Yes Do you have a plan to hurt others: No Plan Meds Allergies Allergy/AdvReac Type Severity Reaction Status Date / Time acetaminophen [From Tylenol] Allergy Unknown Verified 11/09/24 14:16 atorvastatin Allergy Unknown Verified 11/09/24 14:16 cyclobenzaprine Allergy Unknown Verified 11/09/24 14:16 [From Flexeril] ibuprofen [From Motrin] Allergy Unknown Verified 11/09/24 14:16 Active Medications: Current Medications Acetaminophen (Acetaminophen 325 Mg Tablet) 650 mg PO Q6H PRN PRN Reason: Pain, Mild 1-3,fever,headache Calcium Carbonate (Calcium Carbonate 750 Mg Tab.Chew) 750 mg PO Q4H PRN PRN Reason: Heartburn Furosemide (Furosemide 100 Mg/10 Ml Vial) 60 mg IVPUSH BID@0900,1800 [facility]; Protocol Magnesium Hydroxide (Milk Of Magnesia 30 Ml Oral.Susp) 30 ml PO DAILY PRN PRN Reason: Constipation Melatonin (Melatonin 3 Mg Tablet) 6 mg PO BEDTIME PRN PRN Reason: Insomnia Ondansetron HCl (Ondansetron Hcl 4 Mg/2 Ml Vial) 4 mg IVPUSH Q8H PRN PRN Reason: Nausea and Vomiting Oseltamivir Phosphate (Oseltamivir Phosphate 30 Mg Capsule) 30 mg PO Q12H [facility] Stop: 11/14/24 21:01 Sodium Chloride (0.9 % Sodium Chloride Flush 3 Ml Syringe) 3 [facility] Home Medications ?Medication ?Instructions ?Recorded ?Confirmed ?Last Taken ?Type apixaban 5 mg tablet (Eliquis) 5 mg PO BID 11/09/24 11/09/24 Unknown History bisacodyl 10 mg rectal suppository [address] Q8H PRN Constipation 11/09/24 11/09/24 Unknown History cetirizine 10 mg tablet 10 mg PO DAILY 11/09/24 11/09/24 Unknown History cholecalciferol (vitamin D3) 125 125 mcg PO DAILY 11/09/24 11/09/24 Unknown History mcg (5,000 unit) tablet (Vitamin D3) docusate sodium 100 mg tablet 100 mg PO Q12H PRN Constipation 11/09/24 11/09/24 Unknown History furosemide 20 mg tablet 60 mg PO BID@0900,1700 11/09/24 11/09/24 Unknown History hydrocortisone 1 % topical cream 1 appl topical Q6H PRN Hemorrhoids 11/09/24 11/09/24 Unknown History (Preparation H Hydrocortisone) hydromorphone 2 mg tablet 4 mg PO Q4H PRN Pain (Scale Score 11/09/24 11/09/24 Unknown History 7-10) lidocaine-prilocaine 2.5 %-2.5 % 1 appl topical DAILY PRN Pain 11/09/24 11/09/24 Unknown History topical cream magnesium hydroxide 400 mg/5 mL 30 ml PO DAILY PRN Constipation 11/09/24 11/09/24 Unknown History oral suspension (Milk of Magnesia) methyl salicylate 15 %-menthol 10 1 appl topical Q12H PRN Pain 11/09/24 11/09/24 Unknown History % topical cream (Muscle Rub) (Scale Score 1-3) metoprolol tartrate 25 mg tablet 25 mg PO BID 11/09/24 11/09/24 Unknown History pantoprazole 40 mg tablet,delayed 40 mg PO DAILY@0630 11/09/24 11/09/24 Unknown History release polyethylene glycol 3350 17 gram 17 g PO DAILY PRN Constipation 11/09/24 11/09/24 Unknown History oral powder packet (Miralax) potassium chloride 20 mEq 20 meq PO DAILY 11/09/24 11/09/24 Unknown History tablet,extended release(part/cryst) sodium phosphates 19 gram-[address] DAILY PRN Constipation 11/09/24 11/09/24 Unknown History gram/118 mL enema (Fleet Enema) tamsulosin 0.4 mg capsule 0.4 mg PO DAILY 11/09/24 11/09/24 Unknown History Physical Exam Vital Signs and Narrative: Vital Signs: Last Vital Signs Temp 97.5 F 11/09/24 20:00 Pulse 98 11/09/24 20:00 Resp 25 H 11/09/24 20:00 BP 130/76 11/09/24 20:00 Pulse Ox 99 11/09/24 20:00 O2 Del Method Nasal Cannula 11/09/24 20:00 O2 Flow Rate 4 11/09/24 20:00 BMI result Body Mass Index 34.5 General: AOx3, no acute distress. some confusion about reason for hospitalization Resp: rhonchi upper airways, no wheezing. CVS: RRR, +murmur GI: +BS, NT, no distention Skin: Warm, dry Neuro: Cranial nerves II-XII grossly intact bilaterally. Motor grossly intact bilaterally Extremities: No pitting edema. no obvious cellulitis lower extremities. appears to be chronic venous stasis Psych: Appropriate affect, mild agitation Const: General: confusion Orientation/consciousness: confusion Eyes: Direct Ophthalmoscopy: No photophobia Neuro: General: confusion Results Labs 11/09/24 14:51 11/09/24 14:51 Labs: Laboratory Results - last 24 hr 11/09/24 11/09/24 11/09/24 14:51 14:52 15:47 MCV 91.7 MCH 29.8 MCHC 32.5 RDW 14.4 Plt Count 79 L MPV 11.3 Immature Gran % (Auto) 0.5 H Neut % (Auto) 80.6 H Lymph % (Auto) 7.7 L [place] % (Auto) 10.2 Eos % (Auto) 0.5 Baso % (Auto) 0.5 Lymph # (Auto) 0.5 L [place] # (Auto) 0.6 Eos # (Auto) 0.0 Baso # (Auto) 0.0 Abs Immat Gran (auto) 0.03 Absolute Neuts (auto) 4.8 Absolute Nucleated RBC 0.000 Nucleated RBC % (auto) 0.0 Anion Gap 21 H Estim Creat Clear Calc 57.1 Estimated GFR 59 Random Glucose 90 Lactic Acid 1.9 Calcium 9.5 Magnesium 2.0 Total Bilirubin 1.1 H Direct Bilirubin 0.2 AST 58 H ALT 13 Alkaline Phosphatase 155 H B-Natriuretic Peptide 208 H Total Protein 8.0 Albumin 3.8 Lipase 9 Urine Color Yellow Urine Appearance Clear Urine pH 5.5 Ur Specific [place] 1.010 Urine Protein Trace Urine Glucose (UA) Negative Urine Ketones Negative Urine Blood Negative Urine Nitrite Negative Ur Leukocyte Esterase Large (3+) H Urine RBC 0-2 Urine WBC >50 H Ur Squamous Epith Cells 0-2 Urine Bacteria None Seen Hyaline Casts 3-5 Influenza Type A (PCR) POSITIVE A Influenza Type B (PCR) NEGATIVE RSV RNA Qual (PCR) NEGATIVE SARS-CoV-2 RNA (RT-PCR) NEGATIVE Imaging Radiologist's Impressions: Impressions Chest X-Ray 11/09/24 15:18 IMPRESSION: Cardiomegaly with moderate interstitial pulmonary edema. No effusions. Electronically signed by: Andrez Byers MD 11/09/2024 03:48 PM [facility] [place] and Plan (1) Sepsis: Status: Acute (2) Acute hypoxic respiratory failure: Status: Acute (3) Metabolic encephalopathy: Status: Acute (4) Acute exacerbation of CHF (congestive heart failure): Status: Acute (5) Influenza A: Status: Acute (6) Metabolic acidosis: Status: Acute (7) Thrombocytopenia: Status: Acute Plan Patient is a 79-year-old male with a past medical history significant for venous insufficiency, chronic pain syndrome, AFib, CHF, HTN, urinary retention and BPH, GERD, and metastatic pancreatic cancer, who presented to the ED due to a 10 lb weight gain in 1 day as well as altered mental status. Viral sepsis, acute hypoxic respiratory failure, metabolic encephalopathy and CHF exacerbation in the setting of flu - WBC normal, lactic acid 1.9, tachycardic, tachypneic and fever up to 101.8, blood cultures x2 pending - chest x-ray with cardiomegaly and moderate pulmonary edema, no effusion - BNP 208 - EKG with AFib with RVR, rate low 100s - labs with metabolic acidosis - flu A positive - UA with >50 WBC, culture pending, no urinary symptoms - started on Zosyn in ED for possible cellulitis, appears to be chronic venous stasis, discontinue antibiotics - start Tamiflu - no IV fluids given due to CHF exacerbation - given furosemide 40 mg in ED, continue 60 mg b.i.d. - albumin given due to hypotension - speech eval due to swallowing difficulties with metal dental implants, NPO for now - echocardiogram - monitor on tele - monitor CBC and BMP Metabolic acidosis - secondary to flu - avoid IV fluids due to CHF exacerbation - monitor BMP Thrombocytopenia - likely secondary to sepsis - monitor CBC AFib - EKG with AFib with RVR, rate controlled in low 100s - continue eliquis - hold metoprolol as patient is hypotensive, resume when appropriate HTN - hold metoprolol as patient is hypotensive, resume when appropriate Urinary retention/BPH - continue Flomax GERD - continue pantoprazole Obesity - BMI 34.5 - weight loss encouraged DNI per MOLST form in pt chart VTE prophylaxis: eliquis Patient with viral sepsis, acute hypoxic respiratory failure, metabolic encephalopathy secondary to CHF exacerbation in the setting of flu, requiring admission for at least 2 midnight stay for IV diuresis and monitoring. Quality Stroke Does the patient have a stroke diagnosis?: No VTE Prior VTE?: No VTE Risk Level:: Medical - moderate - high VTE Device Contraindication: Treatment Not Indicated VTE Drug Contraindication: N/A - Med Ordered
[2024-11-09] MEDS: Oseltamivir Phosphate 75 MG CAPSULE PO (21:35)
[2024-11-09] MEDS: Albumin Human 25 % 100 ML 133.33 ML IV ×2 (21:58→22:48)
[2024-11-10] VITALS (11 sets, daily range): BP systolic 99–134; BP diastolic 51–80; PULSE 61–102; RESP 16–24; TEMP 36.3–37.3; O2SAT 97–100
[2024-11-10 05:09] LABS: Hematocrit 28.3 % (42.0-52.0); Hemoglobin 9.4 g/dl (14.0-18.0); Mean Corpuscular HGB Conc 33.2 g/dl (31.0-36.0); Mean Corpuscular Volume 90.4 fL (80.0-98.0); Mean Platelet Volume 11.3 fL (9.4-12.4); Red Blood Count 3.13 X10*6/uL (4.60-5.80); Red Cell Distribution Width 14.4 % (11.0-16.0)
[2024-11-10 05:14] LABS: Platelet Count 60 X10*3/uL (160-400)
[2024-11-10 05:25] LABS: Anion Gap 17 (12-20); Blood Urea Nitrogen 41 mg/dL (9-16); Carbon Dioxide 25 mmol/L (22-29); Chloride 100 mmol/L (96-108); Creatinine Clr Calc Pharmacy 54.8; Estimated Glomerular Filt Rate 56; Glucose Random 94 mg/dL (60-115); Potassium 3.4 mmol/L (3.3-5.1); Sodium 139 mmol/L (135-145)
[2024-11-10] MEDS: Omeprazole 40 MG CAPSULE.DR PO (06:59)
[2024-11-10] MEDS: 0.9 % Sodium Chloride Flush 3 ML SYRINGE IVFLUSH ×3 (06:59→23:10)
--- NOTE | 2024-11-10 07:00 | CA_ITS ---
Transthoracic Echocardiogram Patient (Last, First, Middle): Jeovanny Gonzales, Gender: Male Date of : 1945 Age: 79 Procedure Date: 11/10/2024 Procedure Type: Transthoracic Echocardiogram Location: ER Height: 170. cm Weight: 99.79 kg BSA: 2.10 m2 Heart Rate: 111 bpm BP: 125 / 57 mmHg Motion Picture Equipment Machinist: SHELBY Referring MD: Lyle Houser MD Symptoms: CHF Study Quality: Technically Difficult ECG Rhythm: Atrial Fibrillation Conclusions: - The left ventricular systolic function is normal. The visually estimated ejection fraction is between 60-65%. - Severe biatrial enlargement. - A bioprosthetic aortic valve is present. The prosthetic aortic valve appears to be functioning normally. - There is moderate mitral annular calcification. - Mild to moderate pulmonary hypertension is present. Findings Left Ventricle Normal left ventricular cavity size. There is moderately increased left ventricular wall thickness. The left ventricular systolic function is normal. The visually estimated ejection fraction is between 60-65%. There is no evidence of regional wall motion abnormalities. Diastolic function is indeterminate on the basis of available data. Right Ventricle Mildly increased right ventricular cavity size. There is moderately decreased right ventricular systolic function. Atria Severe biatrial enlargement. Aortic Valve A bioprosthetic aortic valve is present. The prosthetic aortic valve appears to be functioning normally. The aortic valve was not well visualized. The mean gradient is 7 mmHg. There is no aortic valve regurgitation. Mitral Valve There is moderate mitral annular calcification. There is mild mitral valve regurgitation. There is no mitral valve stenosis. Pulmonic Valve The pulmonic valve is likely normal. There is trace pulmonic valve regurgitation. Tricuspid Valve Normal tricuspid valve structure. There is mild tricuspid valve regurgitation. Mild to moderate pulmonary hypertension is present. Great Vessels The asc aorta and aortic arch are normal in size. Venous The inferior vena cava is dilated and collapses greater than 50% with inspiration. Pericardium/Pleural There is a small loculated pericardial effusion overlying the right ventricle and right atrium. Prior Study Comparison No prior study available for comparison. Measurements 2D Linear Measurements IVSd: 0.96 0.6-0.9/0.6-1.0 cm LVIDd: 4.12 3.9-5.3/4.2-5.9 cm LVIDd Index: 1.96 2.4-3.2/2.2-3.1 cm/m2 LVIDs: 2.73 2.0-3.6 cm LVPWd: 1.60 0.7-1.1 cm LA Diam: 5.10 2.7-3.8/3.0-4.0 cm LAIDs Index: 2.43 1.5-2.3 cm/m2 LV Mass: 237.55 67-162/88-224 g LV Mass Index: 113.12 43-95/49-115 g/m2 LVOT Diam: 2.00 3.0+(-)1.3 cm 2D Systolic Function EF 4C: 70.20 >55% EF 2C: 60.90 >55% Mitral Valve MV VTI: 0.41 MV Pk Mino: 2.24 MV Mn Mino: 1.08 MV Pk Grad: 20.00 MV Mn Grad: 7.00 MV Pk E: 1.31 MV Decel Time: 138.00 E'Lateral: 13.30 E'Medial: 8.87 E/E' Med: 14.80 E/E' Lat: 9.80 PHT: 40.00 MVA PHT: 5.50 MVA Continuity: 1.22 Decel Murray: 9.54 Aortic Valve AoV Pk Mino: 1.73 AoV Mn Mino: 1.17 AoV VTI: 0.29 AoV Pk Grad: 12.00 Aov Mn Grad: 7.00 ANGELES Cont.VTI: 1.73 LVOT LVOT Pk Mino: 0.86 LVOT Mn Mino: 0.64 LVOT VTI: 0.16 LVOT Pk Grad: 3.00 LVOT Mn Grad: 2.00 LVOT Diam: 2.00 LVOT Area: 3.14 Diastolic Function MV Pk E: 1.31 E'Medial: 8.87 E/E' Med: 14.80 E' Laterial: 13.30 E/E' Lat: 9.80 Right Ventricle TAPSE (mm): 12.00 TVS' Mino: 9.39 Tricuspid Valve TR Pk Mino: 3.21 TR Pk Grad: 41.00 RA Press: 8.00 RVSP: 49.00 Great Vessels Aorta Sinus of Valsalva: 3.40 2.0-3.5 cm Ao Asc: 2.90 2.1-3.4 cm Ao Arch: 3.70 Pulmonary Valve PV Pk Mino: 0.71 Peak PV Grad: 2.00 Updated in Other Vendor System with Status of Final Cruz French MD electronically signed on 11/10/2024 4:47:20 PM with status of Final
--- NOTE | 2024-11-10 07:01 | PC.NURSE ---
alert. axox3. weeping red swollen BLE, dressing changed. old dsg saturated with serous fluid. pt c/o too much mucous. is SOB with even minimal effort in bed. LS crackles in bases berry. moderate air movement.
[2024-11-10 07:30] LABS: Glucose, Whole Blood 86 mg/dL (60-115)
[2024-11-10 08:14] LABS: Ammonia 43 umol/L (13-55)
--- NOTE | 2024-11-10 08:22 | HO.PM.IMPN ---
Subjective Subjective Date of Service: 11/10/24 Interval History: f/u on metabolic encephalopathy, viral sepsis d/t influenza overall was doing better Physical Exam Vital Signs: Vital Signs: Last Vital Signs Temp 97.8 F 11/10/24 07:04 Pulse 79 11/10/24 07:04 Resp 23 H 11/10/24 07:04 BP 121/68 11/10/24 07:04 Pulse Ox 100 11/10/24 07:04 O2 Del Method Nasal Cannula 11/10/24 07:04 O2 Flow Rate 2 11/10/24 07:04 BMI result Body Mass Index 34.5 Const: Other: General: AO X 3, no acute distress Resp: CTA bilateral CVS: S1,S2,RRR GI: +BS, NT, no distention Skin: No rash Neuro: motor grossly intact Psych: appropriate affect Objective Data Active Medications Acetaminophen (Acetaminophen 325 Mg Tablet) 650 mg PO Q6H PRN PRN Reason: Pain, Mild 1-3,fever,headache Apixaban (Apixaban 5 Mg Tablet) 5 mg PO BID [facility] Bisacodyl (Bisacodyl 10 Mg Supp.Rect) 10 mg WA Q8H PRN PRN Reason: Constipation Calcium Carbonate (Calcium Carbonate 750 Mg Tab.Chew) 750 mg PO Q4H PRN PRN Reason: Heartburn Docusate Sodium (Docusate Sodium 100 Mg Capsule) 100 mg PO Q12H PRN PRN Reason: Constipation Furosemide (Furosemide 100 Mg/10 Ml Vial) 60 mg IVPUSH BID@0900,1800 [facility]; Protocol Hydrocortisone (Hydrocortisone 1 % Cream 28.35 Gm Tube) 1 appl TOPICAL Q6H PRN; Protocol PRN Reason: Hemorrhoids Hydromorphone HCl (Hydromorphone Hcl 2 Mg Tablet) 4 mg PO Q4H PRN PRN Reason: Pain, Severe (Pain Scale 7-10) Loratadine (Loratadine 10 Mg Tablet) 10 mg PO DAILY [facility] Magnesium Hydroxide (Milk Of Magnesia 30 Ml Oral.Susp) 30 ml PO DAILY PRN PRN Reason: Constipation Melatonin (Melatonin 3 Mg Tablet) 6 mg PO BEDTIME PRN PRN Reason: Insomnia Omeprazole (Omeprazole 20 Mg Capsule.Dr) 20 mg PO DAILY@0630 [facility] Ondansetron HCl (Ondansetron Hcl 4 Mg/2 Ml Vial) 4 mg IVPUSH Q8H PRN PRN Reason: Nausea and Vomiting Oseltamivir Phosphate (Oseltamivir Phosphate 30 Mg Capsule) 30 mg PO Q12H [facility] Stop: 11/14/24 21:01 Polyethylene Glycol (Polyethylene Glycol 3350 17 Gm Powd.Pack) 17 gm PO DAILY PRN PRN Reason: Constipation Sodium Chloride (0.9 % Sodium Chloride Flush 3 Ml Syringe) 3 ml IVFLUSH QSHIFT [facility] Last Admin: 11/10/24 06:59 Dose: 3 ml Documented By: MELISA Vitamin D (Cholecalciferol (Vitamin D3) 25 Mcg Tablet) 125 mcg PO DAILY [facility] Labs 11/10/24 04:27 11/10/24 04:27 Labs: Laboratory Results - last 24 hr 11/09/24 11/09/24 11/09/24 14:51 14:52 15:47 MCV 91.7 MCH 29.8 MCHC 32.5 RDW 14.4 Plt Count 79 L MPV 11.3 Immature Gran % (Auto) 0.5 H Neut % (Auto) 80.6 H Lymph % (Auto) 7.7 L [place] % (Auto) 10.2 Eos % (Auto) 0.5 Baso % (Auto) 0.5 Lymph # (Auto) 0.5 L [place] # (Auto) 0.6 Eos # (Auto) 0.0 Baso # (Auto) 0.0 Abs Immat Gran (auto) 0.03 Absolute Neuts (auto) 4.8 Absolute Nucleated RBC 0.000 Nucleated RBC % (auto) 0.0 Anion Gap 21 H Estim Creat Clear Calc 57.1 Estimated GFR 59 POC Glucose Random Glucose 90 Lactic Acid 1.9 Calcium 9.5 Magnesium 2.0 Total Bilirubin 1.1 H Direct Bilirubin 0.2 AST 58 H ALT 13 Alkaline Phosphatase 155 H Ammonia B-Natriuretic Peptide 208 H Total Protein 8.0 Albumin 3.8 Lipase 9 Urine Color Yellow Urine Appearance Clear Urine pH 5.5 Ur Specific [place] 1.010 Urine Protein Trace Urine Glucose (UA) Negative Urine Ketones Negative Urine Blood Negative Urine Nitrite Negative Ur Leukocyte Esterase Large (3+) H Urine RBC 0-2 Urine WBC >50 H Ur Squamous Epith Cells 0-2 Urine Bacteria None Seen Hyaline Casts 3-5 Influenza Type A (PCR) POSITIVE A Influenza Type B (PCR) NEGATIVE RSV RNA Qual (PCR) NEGATIVE SARS-CoV-2 RNA (RT-PCR) NEGATIVE 11/10/24 11/10/24 11/10/24 04:27 07:23 07:59 MCV 90.4 MCH 30.0 MCHC 33.2 RDW 14.4 Plt Count 60 L MPV 11.3 Immature Gran % (Auto) Neut % (Auto) Lymph % (Auto) [place] % (Auto) Eos % (Auto) Baso % (Auto) Lymph # (Auto) [place] # (Auto) Eos # (Auto) Baso # (Auto) Abs Immat Gran (auto) Absolute Neuts (auto) Absolute Nucleated RBC 0.000 Nucleated RBC % (auto) 0.0 Anion Gap 17 Estim Creat Clear Calc 54.8 Estimated GFR 56 POC Glucose 86 Random Glucose 94 Lactic Acid Calcium 9.0 Magnesium Total Bilirubin Direct Bilirubin AST ALT Alkaline Phosphatase Ammonia 43 B-Natriuretic Peptide Total Protein Albumin Lipase Urine Color Urine Appearance Urine pH Ur Specific [place] Urine Protein Urine Glucose (UA) Urine Ketones Urine Blood Urine Nitrite Ur Leukocyte Esterase Urine RBC Urine WBC Ur Squamous Epith Cells Urine Bacteria Hyaline Casts Influenza Type A (PCR) Influenza Type B (PCR) RSV RNA Qual (PCR) SARS-CoV-2 RNA (RT-PCR) Assessment and Plan (1) Influenza A: Status: Acute (2) Sepsis: Status: Acute Plan Patient is a 79-year-old male with a past medical history significant for venous insufficiency, chronic pain syndrome, AFib, CHF, HTN, urinary retention and BPH, GERD, and metastatic pancreatic cancer, who presented to the ED due to a 10 lb weight gain in 1 day as well as altered mental status. Viral sepsis d/t influenza A with metabolic encephalopathy -symptomatic treatment -tamiflu -O2 PRN --mucines for cough chronic HFpEF with some exacerbation, given iv lasix in ED, seems better Echo EF 60 to 65 continue lasix monitor I/O, bmp Chronic venous stasis, given Zosyn in ED, no clear sings of infection. No indication for antibiotics Metabolic acidosis d/t influenza A, resolved with IVF Thrombocytopenia no prior value - likely secondary to sepsis - monitor CBC Chronic AFib, rate controlled. continue metoprolol continue eliquis HTN--BP normal continue metoprolol Urinary retention/BPH continue Flomax GERD prontinue pantoprazole Obesity BMI 34.5 weight loss encouraged DNI per MOLST form in pt chart VTE prophylaxis: eliquis Patient with viral sepsis, acute hypoxic respiratory failure, metabolic encephalopathy secondary to CHF exacerbation in the setting of flu, requiring admission for at least 2 midnight stay for IV diuresis and monitoring. Quality Stroke Does the patient have a stroke diagnosis?: No VTE Prior VTE?: No VTE Risk Level:: Medical - moderate - high VTE Device Contraindication: Treatment Not Indicated VTE Drug Contraindication: N/A - Med Ordered
[2024-11-10] MEDS: Apixaban 5 MG TABLET PO ×2 (08:37→21:12)
[2024-11-10] MEDS: Loratadine 10 MG TABLET PO (08:37)
[2024-11-10] MEDS: Oseltamivir Phosphate 30 MG CAPSULE PO ×2 (08:38→21:12)
[2024-11-10] MEDS: Furosemide 100 MG/10 ML VIAL 60 MG IVPUSH (08:39)
--- NOTE | 2024-11-10 12:05 | MHC.CM.PN ---
CM met with Patient at bedside, in the ED, and addressed IMM with him(Verbally r/t precautions for Influenza A);original IMM was given to Patient and a copy will be placed on the chart. Patient comes to [facility] from [facility], where he was for STR; Patient does not want to return there. Patient's goal is home ([facility] @ [address] [place] [address])with a new referral to [facility]; CM has initiated and will follow for dc planning. PCP is Dr. Slava Garcia and HCP is Sarah [facility]. Patient requests BLS transport to home at time of dc.Patient states that he purchased his home O2 on [address] for $60.00/month.
[2024-11-10 13:21] LABS: Glucose, Whole Blood 79 mg/dL (60-115)
[2024-11-10] MEDS: HYDROmorphone HCl 2 MG TABLET 4 MG PO ×3 (14:02→23:09)
--- NOTE | 2024-11-10 15:36 | MHC.SL.SWA ---
Speech Pathologist Impression: Oral phase dysphagia with slowed mastication and residue on teeth d/t metal implant in jaw Dysphasia Diet Status: Start NDD2/THIN Liquid Consistency and Strategies for Safe Swallow: Liquid Intake Recommendation: Thin Liquid Intake Strategies: Unrestricted Solid Food Consistency: Dietary Recommendations: Grnd/Mech Altered (NDD2) Additional Modifications to Solid Foods: Recommend GROUND/MECH ALTERED (NDD2) diet and THIN liquids, pills WHOLE in PUREE. Alternate bites with sips of liquid to promote oral clearance. Oral Medication Intake: Whole with Puree Please contact the pharmacy regarding appropriate crushable or liquid drug formulations that are available whenever modified delivery is recommended. Compensatory Strategies and Precautions to be Taken for Safe Swallow: Sitting Upright (90 deg) Double Swallow Small Bites and Sips Alternate Liquids/Solids Rate of Ingestion Change Avoid Specific Foods Supervision While Eating and Drinking for Safe Swallow: Intermittent Supervision Foods to Avoid: Hard, crunchy, or sticky foods Swallowing Recommended Treatments: Compens. Strategy Educat. Recommendation for Speech: Inpatient Speech Therapy Comment: 1 f/u Frequency/Duration: Date Range for Service Req: Timeline to reassess: Supervisor Plasma Clinican/Clinical Fellow: No Supervisory Statement: I have reviewed and agree with the student/clinical fellow's documentation: N/A Speech Language Pathologist: Sheryl Small M.A., CCC-EL TEACHER
[2024-11-10] MEDS: Furosemide 20 MG TABLET 60 MG PO (17:15)
[2024-11-10] MEDS: Throat Lozenge, Medicated LOZENGE 1 LOZENGE MUCOUS MEM ×2 (18:39→23:15)
[2024-11-10] MEDS: guaiFENesin LA 600 MG TAB.ER.12H PO (18:39)
[2024-11-10] MEDS: Metoprolol Tartrate 25 MG TABLET PO (21:11)
--- NOTE | 2024-11-10 23:24 | PC.NURSE ---
Patient has been calm but demanding throughout this RN's shift. Patient has requested dietary changes, medication dose changes, criticizing previous caretakers. States that the medications given aren't as good as the ones at [facility] and questions every medication given. Speech evaluated the patient earlier today. Ground/puree diet, thin liquids. Pills whole with applesauce.
[2024-11-11] VITALS (7 sets, daily range): BP systolic 116–139; BP diastolic 66–85; PULSE 63–95; RESP 14–26; TEMP 36.7–36.9; O2SAT 97–99
[2024-11-11] MEDS: HYDROmorphone HCl 2 MG TABLET 4 MG PO ×2 (03:35→08:24)
[2024-11-11] MEDS: Throat Lozenge, Medicated LOZENGE 1 LOZENGE MUCOUS MEM ×4 (03:45→20:27)
[2024-11-11] MEDS: Omeprazole 20 MG CAPSULE.DR PO (06:07)
[2024-11-11] MEDS: Metoprolol Tartrate 25 MG TABLET PO ×2 (08:13→20:27)
[2024-11-11] MEDS: Apixaban 5 MG TABLET PO ×2 (08:13→20:27)
[2024-11-11] MEDS: Tamsulosin HCL 0.4 MG CAPSULE PO (08:13)
[2024-11-11] MEDS: Oseltamivir Phosphate 30 MG CAPSULE PO ×2 (08:13→20:27)
[2024-11-11] MEDS: Potassium Chloride ER 20 MEQ TAB.ER.PRT PO (08:13)
[2024-11-11] MEDS: Furosemide 20 MG TABLET 60 MG PO ×2 (08:13→18:50)
[2024-11-11] MEDS: Loratadine 10 MG TABLET PO (08:14)
[2024-11-11] MEDS: Cholecalciferol (Vitamin D3) 25 MCG TABLET 125 MCG PO (08:24)
--- NOTE | 2024-11-11 08:38 | PC.NURSE ---
Pt. very demanding to this RN- demanding a floor cleaning, new sheets, PRN Dilaudid, apple sauce. Calling previous caregivers and techs useless. Very difficult while administering meds. Pt. took PRN Dilaudid whole in applesauce. Remaining non-narcotic scheduled medications pills are at pt.'s bedside, pt. wanting to take pills by himself, as he stated to this RN I am all set with you. I don't need your services because I can still take my own pills . MD Von in room and pt. requesting an increase in PRN Dilaudid dose from 4mg to 6mg.
--- NOTE | 2024-11-11 12:19 | MHC.SL.SWA ---
Addendum entered and electronically signed by Aleyda Parrish MS, CCC-SEMI CONDUCTOR ASSEMBLER 11/11/24 13:49: Ammendment: Additional Modifications to Solid Foods: Recommend NDD1 diet with thin liquids, soups ok. Pills whole in puree. Alternate bites with sips of liquid to promote oral clearance. Original Note: Speech Pathologist Impression: Moderate oral phase dysphgagia in presence of metal implant in lower jaw. Pt endorses difficulty chewing and notes he does best with purees but refuses trials of more advanced consistencies. Risk of Aspiration Due to: Dysphasia Diet Status: Liquid Consistency and Strategies for Safe Swallow: Liquid Intake Recommendation: Thin Liquid Intake Strategies: Unrestricted Solid Food Consistency: Dietary Recommendations: Pureed (NDD1) Additional Modifications to Solid Foods: Recommend GROUND/MECH ALTERED (NDD2) diet and THIN liquids, pills WHOLE in PUREE. Alternate bites with sips of liquid to promote oral clearance. Oral Medication Intake: Crushed with Puree Please contact the pharmacy regarding appropriate crushable or liquid drug formulations that are available whenever modified delivery is recommended. Compensatory Strategies and Precautions to be Taken for Safe Swallow: Sitting Upright (90 deg) Small Bites and Sips Alternate Liquids/Solids Rate of Ingestion Change Supervision While Eating and Drinking for Safe Swallow: Intermittent Supervision Foods to Avoid: Hard, dry, or sticky foods Swallowing Recommended Treatments: Compens. Strategy Educat. Recommendation for Speech: Inpatient Speech Therapy Comment: Patient endorsed hx of dysphagia during discussion tosday, noiing he did best in the past with purees. It was difficult to determine degree of dysphagia vs. refusals. SEMI CONDUCTOR ASSEMBLER will continue to follow. Frequency/Duration: Date Range for Service Req: Timeline to reassess: Rheumatology Specialist Clinican/Clinical Fellow: No Supervisory Statement: I have reviewed and agree with the student/clinical fellow's documentation: N/A Speech Language Pathologist: Aleyda Parrish M.S., CCC-SEMI CONDUCTOR ASSEMBLER
--- NOTE | 2024-11-11 13:35 | P.PNIM_ITS ---
Subjective Subjective Date of Service: 11/11/24 Interval History: no new issues, blreathing is better, c/o more pain Physical Exam 2 Vital Signs: Vital Signs: Last Vital Signs Temp 98.4 F 11/11/24 07:46 Pulse 95 11/11/24 08:11 Resp 14 11/11/24 08:11 BP 139/76 11/11/24 08:11 Pulse Ox 98 11/11/24 08:11 O2 Del Method Nasal Cannula 11/11/24 08:11 O2 Flow Rate 2 11/11/24 08:11 BMI result Body Mass Index 34.5 Const: Other: General: AO X 3, no acute distress Resp: CTA bilateral CVS: S1,S2,RRR GI: +BS, NT, no distention Skin: Neuro: motor grossly intact Psych: appropriate affect Objective Data Active Medications Acetaminophen (Acetaminophen 325 Mg Tablet) 650 mg PO Q6H PRN PRN Reason: Pain, Mild 1-3,fever,headache Apixaban (Apixaban 5 Mg Tablet) 5 mg PO BID [facility] Last Admin: 11/11/24 08:13 Dose: 5 mg Documented By: MERLINE Benzocaine (Throat Lozenge, Medicated Lozenge) 1 lozenge MUCOUS MEM Q2H PRN PRN Reason: Sore Throat Last Admin: 11/11/24 10:27 Dose: 1 lozenge Documented By: NOHEMY Bisacodyl (Bisacodyl 10 Mg Supp.Rect) 10 mg NV Q8H PRN PRN Reason: Constipation Calcium Carbonate (Calcium Carbonate 750 Mg Tab.Chew) 750 mg PO Q4H PRN PRN Reason: Heartburn Docusate Sodium (Docusate Sodium 100 Mg Capsule) 100 mg PO Q12H PRN PRN Reason: Constipation Furosemide (Furosemide 20 Mg Tablet) 60 mg PO BID@0900,1700 [facility]; Protocol Last Admin: 11/11/24 08:13 Dose: 60 mg Documented By: MERLINE Guaifenesin (Guaifenesin La 600 Mg Tab.Er.12h) 600 mg PO BID [facility] Last Admin: 11/10/24 18:39 Dose: 600 mg Documented By: DANILO Hydrocortisone (Hydrocortisone 1 % Cream 28.35 Gm Tube) 1 appl TOPICAL Q6H PRN; Protocol PRN Reason: Hemorrhoids Hydromorphone HCl (Hydromorphone Hcl 2 Mg Tablet) 4 mg PO Q4H PRN PRN Reason: Pain, Severe (Pain Scale 7-10) Last Admin: 11/11/24 08:24 Dose: 4 mg Documented By: MERLINE Loratadine (Loratadine 10 Mg Tablet) 10 mg PO DAILY [facility] Last Admin: 11/11/24 08:14 Dose: 10 mg Documented By: MERLINE Magnesium Hydroxide (Milk Of Magnesia 30 Ml Oral.Susp) 30 ml PO DAILY PRN PRN Reason: Constipation Magnesium Hydroxide (Milk Of Magnesia 30 Ml Oral.Susp) 30 ml PO DAILY PRN PRN Reason: Constipation Melatonin (Melatonin 3 Mg Tablet) 6 mg PO BEDTIME PRN PRN Reason: Insomnia Metoprolol Tartrate (Metoprolol Tartrate 25 Mg Tablet) 25 mg PO BID [facility]; Protocol Last Admin: 11/11/24 08:13 Dose: 25 mg Documented By: MERLINE Omeprazole (Omeprazole 20 Mg Capsule.Dr) 20 mg PO DAILY@0630 [facility] Last Admin: 11/11/24 06:07 Dose: 20 mg Documented By: DEISI Ondansetron HCl (Ondansetron Hcl 4 Mg/2 Ml Vial) 4 mg IVPUSH Q8H PRN PRN Reason: Nausea and Vomiting Oseltamivir Phosphate (Oseltamivir Phosphate 30 Mg Capsule) 30 mg PO Q12H [facility] Stop: 11/14/24 21:01 Last Admin: 11/11/24 08:13 Dose: 30 mg Documented By: MERLINE Polyethylene Glycol (Polyethylene Glycol 3350 17 Gm Powd.Pack) 17 gm PO DAILY PRN PRN Reason: Constipation Potassium Chloride (Potassium Chloride Er 20 Meq Tab.Er.Prt) 20 meq PO DAILY [facility] Last Admin: 11/11/24 08:13 Dose: 20 meq Documented By: MERLINE Sodium Biphosphate/Sodium Phosphate (Sodium Phosphate,Wood-Dibasic 133 Ml Enema) 118 ml NV DAILY PRN PRN Reason: Constipation Sodium Chloride (0.9 % Sodium Chloride Flush 3 Ml Syringe) 3 ml IVFLUSH QSHIFT [facility] Last Admin: 11/11/24 09:30 Dose: Not Given Documented By: MERLINE Non-Admin Reason: Previously Administered Tamsulosin HCl (Tamsulosin Hcl 0.4 Mg Capsule) 0.4 mg PO DAILY [facility] Last Admin: 11/11/24 08:13 Dose: 0.4 mg Documented By: MERLINE Vitamin D (Cholecalciferol (Vitamin D3) 25 Mcg Tablet) 125 mcg PO DAILY [facility] Last Admin: 11/11/24 08:24 Dose: 125 mcg Documented By: MERLINE Labs 11/10/24 04:27 11/10/24 04:27 Microbiology Microbiology Results: Microbiology 11/09/24 14:52 Blood Culture - Preliminary Blood - Venous No growth after 24 hours. 11/09/24 14:52 Blood Culture - Preliminary Blood - Venous No growth after 24 hours. 11/09/24 15:59 Urine Culture - Final Urine clean catch - Clean Catch Midstream Assessment and Plan (1) Influenza A: Status: Acute (2) Sepsis: Status: Acute Plan Patient is a 79-year-old male with a past medical history significant for venous insufficiency, chronic pain syndrome, AFib, CHF, HTN, urinary retention and BPH, GERD, and metastatic pancreatic cancer, who presented to the ED due to a 10 lb weight gain in 1 day as well as altered mental status. Viral sepsis d/t influenza A with metabolic encephalopathy -symptomatic treatment -tamiflu -O2 PRN, wean off O2 --mucinex for cough chronic HFpEF with some exacerbation, given iv lasix in ED, seems better Echo EF 60 to 65 continue lasix PO monitor I/O, bmp Chronic venous stasis, given Zosyn in ED, no clear sings of infection. No indication for antibiotics Metabolic acidosis d/t influenza A, resolved with IVF Thrombocytopenia no prior value - likely secondary to sepsis - monitor CBC Chronic AFib, rate controlled. continue metoprolol continue eliquis HTN--BP normal continue metoprolol Urinary retention/BPH continue Flomax GERD prontinue pantoprazole Obesity BMI 34.5 weight loss encouraged DNI per MOLST form in pt chart VTE prophylaxis: eliquis Patient with viral sepsis, acute hypoxic respiratory failure, metabolic encephalopathy secondary to CHF exacerbation in the setting of flu, requiring admission for at least 2 midnight stay for IV diuresis and monitoring. likely dc tomorrow Quality Stroke Does the patient have a stroke diagnosis?: No VTE Prior VTE?: No VTE Risk Level:: Medical - moderate - high VTE Device Contraindication: Treatment Not Indicated VTE Drug Contraindication: N/A - Med Ordered
[2024-11-11 14:13] LABS: Hematocrit 33.4 % (42.0-52.0); Hemoglobin 10.5 g/dl (14.0-18.0); Mean Corpuscular HGB Conc 31.4 g/dl (31.0-36.0); Mean Corpuscular Hemoglobin 29.1 pg (27.0-33.0); Mean Corpuscular Volume 92.5 fL (80.0-98.0); Mean Platelet Volume 10.2 fL (9.4-12.4); Red Blood Count 3.61 X10*6/uL (4.60-5.80); Red Cell Distribution Width 14.5 % (11.0-16.0); White Blood Count 5.6 X10*3/uL (4.8-10.8)
[2024-11-11 14:14] LABS: Platelet Count 64 X10*3/uL (160-400)
[2024-11-11] MEDS: HYDROmorphone HCl 2 MG TABLET 5 MG PO ×2 (14:17→20:27)
--- NOTE | 2024-11-11 14:22 | PC.NURSE ---
Pt. requesting PRN Dilaudid and PRN throat lozenge at this time. Also requesting dressing to R leg to be reinforced because it is sliding down leg. No further complaints at this time.
[2024-11-11 14:27] LABS: Anion Gap 13 (12-20); Blood Urea Nitrogen 33 mg/dL (9-16); Carbon Dioxide 33 mmol/L (22-29); Chloride 98 mmol/L (96-108); Estimated Glomerular Filt Rate > 60; Glucose Random 114 mg/dL (60-115); Potassium 4.1 mmol/L (3.3-5.1); Sodium 140 mmol/L (135-145)
--- NOTE | 2024-11-11 14:27 | PC.NURSE ---
Pt. requesting this RN to notify MD Von that he would like to be put on Doxycycline. notified
--- NOTE | 2024-11-11 14:36 | MHC.EDTECH ---
Pt has ring the call sanchez more than 30x every time a staff answered he is unhappy, speaks of staff horribly, Food not good. Nurse is horrible, I was going to complain to the boards I did remind him we are ED staff, & we have to prioritize tasks but attempting to do our best. Pt has requested for meds varies times I have asked stated. Its been busy Primary RN in with an [facility] patient. Lunch tray given, 4 More juices request/given. Urinal been empty varies times.
[2024-11-11] MEDS: 0.9 % Sodium Chloride Flush 3 ML SYRINGE IVFLUSH (15:25)
[2024-11-11] MEDS: Doxycycline Monohydrate 100 MG CAPSULE PO (18:50)
[2024-11-11] MEDS: guaiFENesin LA 600 MG TAB.ER.12H PO (20:27)
[2024-11-12] VITALS (10 sets, daily range): BP systolic 114–144; BP diastolic 63–85; PULSE 74–100; RESP 16–22; TEMP 36.4–37.2; O2SAT 93–97
[2024-11-12] MEDS: Nystatin Powder 15 GM BOTTLE 1 APPL TOPICAL (00:26)
[2024-11-12] MEDS: Throat Lozenge, Medicated LOZENGE 1 LOZENGE MUCOUS MEM ×5 (00:44→20:04)
[2024-11-12] MEDS: HYDROmorphone HCl 2 MG TABLET 5 MG PO ×5 (00:44→20:20)
--- NOTE | 2024-11-12 00:52 | PC.NURSE ---
pressure injury left buttock with scant bleeding from MASD. triad cream and foam applied. repo'd with pillow to side. legs elevated. medicated for pain. stable, pt calm. call sanchez in reach
[2024-11-12] MEDS: Omeprazole 20 MG CAPSULE.DR PO (05:32)
[2024-11-12] MEDS: Doxycycline Monohydrate 100 MG CAPSULE PO ×2 (05:32→17:30)
[2024-11-12] MEDS: Furosemide 20 MG TABLET 60 MG PO ×2 (09:00→17:30)
[2024-11-12] MEDS: 0.9 % Sodium Chloride Flush 3 ML SYRINGE IVFLUSH ×3 (09:00→19:57)
[2024-11-12] MEDS: Tamsulosin HCL 0.4 MG CAPSULE PO (09:01)
[2024-11-12] MEDS: Metoprolol Tartrate 25 MG TABLET PO ×2 (09:01→19:57)
[2024-11-12] MEDS: guaiFENesin LA 600 MG TAB.ER.12H PO ×2 (09:01→19:57)
[2024-11-12] MEDS: Loratadine 10 MG TABLET PO (09:01)
[2024-11-12] MEDS: Apixaban 5 MG TABLET PO ×2 (09:01→19:57)
[2024-11-12] MEDS: Cholecalciferol (Vitamin D3) 25 MCG TABLET 125 MCG PO (09:01)
[2024-11-12] MEDS: Oseltamivir Phosphate 30 MG CAPSULE PO ×2 (09:01→19:57)
--- NOTE | 2024-11-12 09:24 | MHC.SL.SWA ---
Speech Pathologist Impression: Risk of Aspiration, Oral Phase Dysphagia Dysphasia Diet Status: No Change Liquid Consistency and Strategies for Safe Swallow: Liquid Intake Recommendation: Thin Liquid Intake Strategies: Small Sips Solid Food Consistency: Dietary Recommendations: Grnd/Mech Altered (NDD2) Additional Modifications to Solid Foods: Recommend GROUND/MECH ALTERED (NDD2) diet and THIN liquids, pills WHOLE in PUREE. Alternate bites with sips of liquid to promote oral clearance. Oral Medication Intake: Whole with Puree Please contact the pharmacy regarding appropriate crushable or liquid drug formulations that are available whenever modified delivery is recommended. Compensatory Strategies and Precautions to be Taken for Safe Swallow: Sitting Upright (90 deg) Small Bites and Sips Alternate Liquids/Solids Rate of Ingestion Change Supervision While Eating and Drinking for Safe Swallow: Total Supervision (1:1) Foods to Avoid: Hard, dry, or sticky foods Swallowing Recommended Treatments: Compens. Strategy Educat. Recommendation for Speech: Inpatient Speech Therapy Comment: Patient w/ bottom dentures worn with adhesive and metal implant in bottom jaw. Patient says he typically eats softer foods and denies difficulty swallowing. Frequency/Duration: Date Range for Service Req: Timeline to reassess: Pulmonologist Clinican/Clinical Fellow: No Supervisory Statement: I have reviewed and agree with the student/clinical fellow's documentation: N/A Speech Language Pathologist: Sheryl Small M.A., CCC-SENIOR GAME DEVELOPER
--- NOTE | 2024-11-12 14:00 | MHC.CM.PN ---
MJ met with pt. to discuss DC plan. He said he came here from [facility], but wants to be DC'd to [facility]. JM contacted the nurse at the [facility] and was told that this pt. does not stay there anymore, he was sent out on a section 12 for psych tx, and from there went to [facility], where he has been for 4 months, and now resides on LTC unit. MJ has put return ref into [facility] for pt. to return there today. awaiting response.
--- NOTE | 2024-11-12 14:37 | HO.PM.IMPN ---
Subjective Subjective Date of Service: 11/12/24 Interval History: no new issues, blreathing is better, c/o more pain Physical Exam Vital Signs: Vital Signs: Last Vital Signs Temp 98.9 F 11/12/24 11:16 Pulse 74 11/12/24 11:16 Resp 20 11/12/24 11:16 BP 114/63 11/12/24 11:16 Pulse Ox 95 11/12/24 11:16 O2 Del Method Nasal Cannula 11/12/24 11:16 O2 Flow Rate 2 11/12/24 11:16 BMI result Body Mass Index 34.5 Const: Other: General: AO X 3, no acute distress Resp: CTA bilateral CVS: S1,S2,RRR GI: +BS, NT, no distention Skin: No rash Neuro: motor grossly intact Psych: appropriate affect Objective Data Active Medications Acetaminophen (Acetaminophen 325 Mg Tablet) 650 mg PO Q6H PRN PRN Reason: Pain, Mild 1-3,fever,headache Apixaban (Apixaban 5 Mg Tablet) 5 mg PO BID [facility] Last Admin: 11/12/24 09:01 Dose: 5 mg Documented By: ESTHER Benzocaine (Throat Lozenge, Medicated Lozenge) 1 lozenge MUCOUS MEM Q2H PRN PRN Reason: Sore Throat Last Admin: 11/12/24 11:33 Dose: 1 lozenge Documented By: ESTHER Bisacodyl (Bisacodyl 10 Mg Supp.Rect) 10 mg DE Q8H PRN PRN Reason: Constipation Calcium Carbonate (Calcium Carbonate 750 Mg Tab.Chew) 750 mg PO Q4H PRN PRN Reason: Heartburn Docusate Sodium (Docusate Sodium 100 Mg Capsule) 100 mg PO Q12H PRN PRN Reason: Constipation Doxycycline Monohydrate (Doxycycline Monohydrate 100 Mg Capsule) 100 mg PO Q12H [facility] Last Admin: 11/12/24 05:32 Dose: 100 mg Documented By: JASON Furosemide (Furosemide 20 Mg Tablet) 60 mg PO BID@0900,1700 [facility]; Protocol Last Admin: 11/12/24 09:00 Dose: 60 mg Documented By: ESTHER Guaifenesin (Guaifenesin La 600 Mg Tab.Er.12h) 600 mg PO BID [facility] Last Admin: 11/12/24 09:01 Dose: 600 mg Documented By: ESTHER Hydrocortisone (Hydrocortisone 1 % Cream 28.35 Gm Tube) 1 appl TOPICAL Q6H PRN; Protocol PRN Reason: Hemorrhoids Hydromorphone HCl (Hydromorphone Hcl 2 Mg Tablet) 5 mg PO Q4H PRN PRN Reason: Pain, Severe (Pain Scale 7-10) Last Admin: 11/12/24 11:25 Dose: 5 mg Documented By: ESTHER Loratadine (Loratadine 10 Mg Tablet) 10 mg PO DAILY [facility] Last Admin: 11/12/24 09:01 Dose: 10 mg Documented By: ESTHER Magnesium Hydroxide (Milk Of Magnesia 30 Ml Oral.Susp) 30 ml PO DAILY PRN PRN Reason: Constipation Magnesium Hydroxide (Milk Of Magnesia 30 Ml Oral.Susp) 30 ml PO DAILY PRN PRN Reason: Constipation Melatonin (Melatonin 3 Mg Tablet) 6 mg PO BEDTIME PRN PRN Reason: Insomnia Metoprolol Tartrate (Metoprolol Tartrate 25 Mg Tablet) 25 mg PO BID [facility]; Protocol Last Admin: 11/12/24 09:01 Dose: 25 mg Documented By: ESTHER Nystatin (Nystatin Powder 15 Gm Bottle) 1 appl TOPICAL TID [facility]; Protocol Last Admin: 11/12/24 12:24 Dose: 1 appl Documented By: ESTHER Omeprazole (Omeprazole 20 Mg Capsule.Dr) 20 mg PO DAILY@0630 [facility] Last Admin: 11/12/24 05:32 Dose: 20 mg Documented By: JASON Ondansetron HCl (Ondansetron Hcl 4 Mg/2 Ml Vial) 4 mg IVPUSH Q8H PRN PRN Reason: Nausea and Vomiting Oseltamivir Phosphate (Oseltamivir Phosphate 30 Mg Capsule) 30 mg PO Q12H [facility] Stop: 11/14/24 21:01 Last Admin: 11/12/24 09:01 Dose: 30 mg Documented By: ESTHER Polyethylene Glycol (Polyethylene Glycol 3350 17 Gm Powd.Pack) 17 gm PO DAILY PRN PRN Reason: Constipation Potassium Chloride (Potassium Chloride Er 20 Meq Tab.Er.Prt) 20 meq PO DAILY [facility] Last Admin: 11/12/24 09:21 Dose: Not Given Documented By: ESTHER Non-Admin Reason: Patient Refused Sodium Biphosphate/Sodium Phosphate (Sodium Phosphate,[place]-Dibasic 133 Ml Enema) 118 ml DE DAILY PRN PRN Reason: Constipation Sodium Chloride (0.9 % Sodium Chloride Flush 3 Ml Syringe) 3 ml IVFLUSH QSHIFT [facility] Last Admin: 11/12/24 09:00 Dose: 3 ml Documented By: ESTHER Tamsulosin HCl (Tamsulosin Hcl 0.4 Mg Capsule) 0.4 mg PO DAILY [facility] Last Admin: 11/12/24 09:01 Dose: 0.4 mg Documented By: ESTHER Vitamin D (Cholecalciferol (Vitamin D3) 25 Mcg Tablet) 125 mcg PO DAILY [facility] Last Admin: 11/12/24 09:01 Dose: 125 mcg Documented By: ESTHER Labs 11/11/24 13:53 11/11/24 13:53 Microbiology Microbiology Results: Microbiology 11/09/24 14:52 Blood Culture - Preliminary Blood - Venous No growth after 48 hours. 11/09/24 14:52 Blood Culture - Preliminary Blood - Venous No growth after 48 hours. Assessment and Plan (1) A-fib: Status: Acute (2) Acute exacerbation of CHF (congestive heart failure): Status: Acute Plan Patient is a 79-year-old male with a past medical history significant for venous insufficiency, chronic pain syndrome, chronic heart failure, s/p TVR, AFib, CHF, HTN, urinary retention and BPH, GERD, and metastatic pancreatic cancer, who presented to the ED due to a 10 lb weight gain in 1 day as well as altered mental status. Viral sepsis d/t influenza A with metabolic encephalopathy, encephalopathy resolved. No respiratory symptoms at this time. He is already on chronic O2 at 2 l. Continue Tamiflu for 5 days. coughj medications Chronic HFpEF with some exacerbation, given iv lasix in ED, and improved. Echo EF 60 to 65 continue lasix PO 60 mg twice a day as before. The stated 10 Ib weight gain in a day is likely eroneous.. Patient was in heart failure but rapidly Chronic venous stasis, given Zosyn in ED, no clear sings of infection. No indication for antibiotics Metabolic acidosis d/t influenza A, resolved with IVF Thrombocytopenia no prior value, chronic last Plat at [facility] on 10/26 was 80. Followed by oncology there Chronic AFib, rate controlled. continue metoprolol continue eliquis HTN--BP normal continue metoprolol Urinary retention/BPH continue Flomax GERD prontinue pantoprazole Obesity BMI 34.5 weight loss encouraged DNI per MOLST form in pt chart VTE prophylaxis: eliquis Patient with viral sepsis, acute hypoxic respiratory failure, metabolic encephalopathy secondary to CHF exacerbation in the setting of flu, requiring admission for at least 2 midnight stay for IV diuresis and monitoring. likely dc tomorrow Quality Stroke Does the patient have a stroke diagnosis?: No VTE Prior VTE?: No VTE Risk Level:: Medical - moderate - high VTE Device Contraindication: Treatment Not Indicated VTE Drug Contraindication: N/A - Med Ordered
[2024-11-13 04:00] VITALS: BP 136/64; PULSE 72; RESP 16; TEMP 36.9; O2SAT 97
[2024-11-13] MEDS: Omeprazole 20 MG CAPSULE.DR PO (06:22)
[2024-11-13] MEDS: Doxycycline Monohydrate 100 MG CAPSULE PO (06:22)
[2024-11-13 08:00] VITALS: BP 109/63; PULSE 76; RESP 19; TEMP 36.2; O2SAT 98
[2024-11-13] MEDS: 0.9 % Sodium Chloride Flush 3 ML SYRINGE IVFLUSH (08:09)
[2024-11-13] MEDS: Potassium Chloride ER 20 MEQ TAB.ER.PRT PO (08:10)
[2024-11-13] MEDS: Loratadine 10 MG TABLET PO (08:12)
[2024-11-13] MEDS: Tamsulosin HCL 0.4 MG CAPSULE PO (08:12)
[2024-11-13 08:13] VITALS: BP 136/64
[2024-11-13] MEDS: Furosemide 20 MG TABLET 60 MG PO (08:13)
[2024-11-13 08:14] VITALS: BP 109/63; PULSE 76
[2024-11-13] MEDS: Apixaban 5 MG TABLET PO (08:14)
[2024-11-13] MEDS: Metoprolol Tartrate 25 MG TABLET PO (08:14)
[2024-11-13] MEDS: Cholecalciferol (Vitamin D3) 25 MCG TABLET 125 MCG PO (08:15)
[2024-11-13] MEDS: Oseltamivir Phosphate 30 MG CAPSULE PO (08:16)
[2024-11-13] MEDS: guaiFENesin LA 600 MG TAB.ER.12H PO (08:18)
[2024-11-13] MEDS: Throat Lozenge, Medicated LOZENGE 1 LOZENGE MUCOUS MEM (08:22)
--- NOTE | 2024-11-13 11:08 | MHC.CM.PN ---
Second IMM delivered, pt. said he did not want his copy. He has been medically cleared, he will return to [facility] where he resides LTC, via BLS this afternoon.
[2024-11-13 11:52] VITALS: BP 119/60; PULSE 75; RESP 18; TEMP 36.6; O2SAT 95
[2024-11-13] MEDS: HYDROmorphone HCl 2 MG TABLET 5 MG PO (12:47)
--- NOTE | 2024-11-13 14:34 | PM.DS ---
DS: Providers Provider Date of Service: 11/13/24 Date of admission: 11/09/24 20:30 Date of discharge: 11/13/24 Primary care physician: Slava Garcia MD Consults: 11/12/24 02:24 Consult to Wound Care Routine Reason for consultation: pressure injury, bilat leg wounds DS: Diagnosis Discharge Diagnosis (1) Influenza A: Status: Acute (2) Sepsis: Status: Acute DS: Summary Hospital Course Hospital Course: Chief Complaint: 10 lb weight gain, AMS Patient is a 79-year-old male with a past medical history significant for venous insufficiency, chronic pain syndrome, AFib, history of s/p TAVR, CHF, HTN, urinary retention and BPH, GERD, and 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 He is followed at [facility] by Dr. Banks, who presented to the ED due to a 10 lb weight gain in 1 day as well as altered mental status. He denies any upper respiratory symptoms including headache, congestion, sore throat, rhinorrhea, cough or congestion. He also denies any urinary symptoms including frequency, urgency, dysuria or hematuria. He does report bilateral lower extremity edema. He denies any shortness of breath. Unclear if history is accurate due to metabolic encephalopathy however he was oriented to person, place and time. hospital course: Patient is a 79-year-old male with a past medical history significant for venous insufficiency, chronic pain syndrome, chronic heart failure, s/p TVR, AFib, CHF, HTN, urinary retention and BPH, GERD, and metastatic pancreatic cancer, who presented to the ED due to a 10 lb weight gain in 1 day as well as altered mental status. Viral sepsis d/t influenza A with metabolic encephalopathy, encephalopathy resolved. No respiratory symptoms at this time. He is already on chronic O2 at 2 l. Continue Tamiflu for 5 days. cough medications Chronic HFpEF with some exacerbation, given iv lasix in ED, and improved. Echo EF 60 to 65 continue lasix PO 60 mg twice a day as before. The stated 10 Ib weight gain in a day is likely eroneous.. Patient was in heart failure but rapidly Chronic venous stasis, given zosyn in ED. And started on Doxyycline and will treat for 5 more days Metabolic acidosis d/t influenza A, resolved with IVF Thrombocytopenia no prior value, chronic last Plat at [facility] on 10/26 was 80. Followed by oncology there Chronic AFib, rate controlled. continue metoprolol continue eliquis HTN--BP normal continue metoprolol Urinary retention/BPH continue Flomax GERD prontinue pantoprazole Obesity BMI 34.5 weight loss encouraged Chronic pain d/t cancer, increased dilaudid to 5 mg Time Attestation Discharge Coordination Time (in mins): 40 Quality: Safe Use of Opioids Does Pt have an Active Cancer Diagnosis on the Problem List?: No Quality: Stroke Does the patient have a stroke diagnosis?: No Physical Exam Vital Signs: Vital Signs: Selected Entries 11/13/24 11:52 Temperature 97.8 F Pulse Rate 75 Respiratory Rate 18 Blood Pressure 119/60 Pulse Oximetry 95 Oxygen Delivery Me thod Room Air DS: Data Data Completed and Pending Labs on day of discharge: Laboratory Results - last 24 hr 11/11/24 13:53 WBC 5.6 RBC 3.61 L Hgb 10.5 L Hct 33.4 L MCV 92.5 MCH 29.1 MCHC 31.4 RDW 14.5 Plt Count 64 L MPV 10.2 Absolute Nucleated RBC 0.000 Nucleated RBC % (auto) 0.0 Sodium 140 Potassium 4.1 D Chloride 98 Carbon Dioxide 33 H Anion Gap 13 BUN 33 H Creatinine 1.07 Estim Creat Clear Calc 64.0 Estimated GFR > 60 Random Glucose 114 Calcium 9.0 Preliminary micro results at discharge 11/09/24 14:52 Blood Culture - Preliminary Blood - Venous No growth after 48 hours. 11/09/24 14:52 Blood Culture - Preliminary Blood - Venous No growth after 48 hours. Discharge Plan Discharge Anticipated Discharge Date/Time: 11/13/24 14:30 Patient Disposition: er [facility] Discharge Diagnosis: Influenza, heart failure, metabolic encephalopathy Referrals: [facility] [Outside] - 1 Week Slava Garcia MD [Primary Care Provider] - 1 Week Discharge Medications: New hydromorphone 2 mg Tablet 5 mg PO Q4H PRN (Reason: Pain, Severe (Pain Scale 7-10)) Qty: 20 0RF Rx Instructions: Partial Fill upon patient request. oseltamivir 30 mg Capsule 30 mg PO Q12H Qty: 3 0RF doxycycline monohydrate 100 mg Capsule 100 mg PO Q12H Qty: 10 0RF Continued potassium chloride 20 mEq tablet,ER particles/crystals 20 meq PO DAILY tamsulosin 0.4 mg capsule 0.4 mg PO DAILY furosemide 20 mg tablet 60 mg PO BID@0900,1700 metoprolol tartrate 25 mg tablet 25 mg PO BID Eliquis 5 mg tablet 5 mg PO BID polyethylene glycol 3350 [Miralax] 17 gram Powder In Packet 17 g PO DAILY PRN (Reason: Constipation) cetirizine 10 mg tablet 10 mg PO DAILY lidocaine-prilocaine 2.5-2.5 % Cream 1 appl topical DAILY PRN (Reason: Pain) magnesium hydroxide [Milk of Magnesia] 400 mg/5 mL Suspension 30 ml PO DAILY PRN (Reason: Constipation) hydrocortisone [Preparation H Hydrocortisone] 1 % Cream 1 appl TOPICAL Q6H PRN (Reason: Hemorrhoids) bisacodyl 10 mg Suppository 10 mg PA Q8H PRN (Reason: Constipation) pantoprazole 40 mg tablet,delayed release (DR/EC) 40 mg PO DAILY@0630 Fleet Enema 19-7 gram/118 mL Enema 118 ml PA DAILY PRN (Reason: Constipation) docusate sodium 100 mg Tablet 100 mg PO Q12H PRN (Reason: Constipation) cholecalciferol (vitamin D3) [Vitamin D3] 125 mcg (5,000 unit) Tablet 125 mcg PO DAILY Muscle Rub 15-10 % Cream 1 appl TOPICAL Q12H PRN (Reason: Pain (Scale Score 1-3)) Discontinued hydromorphone 2 mg Tablet 4 mg PO Q4H PRN (Reason: Pain (Scale Score 7-10)) Discharge Orders: Discharge Order (Routine); Ordered 11/13/24 Ordered By: Dewayne Longoria Diet: Advance to usual diet Activity on Discharge: As tolerated Stand Alone Forms: Patient Portal Discharge page Print Language: Khmer Care Plan Goals: recovery from influenza, heart failure, metabolic encephalopathy Health Concerns: Influenza, chf, metabolic encephalopathy Plan of Treatment: see above Assessment: finish taking tamiflu continue usual dose of Lasix doxycyline for chronic venous stasis ulcer with possible superimposed cellulitis
--- NOTE | 2024-11-13 14:48 | HO.WOUND ---
Wound Consult: Initial 79yr old male? admitted to [facility] on 11/09/24 20:30 - See progress notes and H&P for detailed history.? Wound consult placed for Bilateral Legs and Buttock.? Patient agreeable to assessment and photo documentation.? Buttock / Intergluteal crease Etiology: ?MASD ?Present on Admission Wound Bed: red pink moist tissue with linear partial thickness tissue loss at base of wound bed Drainage / Odor: none noted at this time Edges: ? mirrored and attached Tiffany wound: ?Intact No Induration, Fluctuance or Warmth noted Pain: pain reported Goals of Treatment: ? Triad to protect frm moisture and friction Bilateral Legs Etiology: PVD?? Wound Bed: # open partial thickness wound beds with red clean wound beds Drainage / Odor: scant serosang Edges: ? well defined and attached Tiffany wound: red dry tissue with thickened epidermal flaking ? No Induration, Fluctuance or Warmth noted Pain: pain reported Goals of Treatment: ? Moist wound healing with Durafiber AG Recommendations: 1. Turn and Reposition every 2 hours and as needed for patient comfort.? Use pillows or wedges to support off loading positions. 2. Off Load all bony prominences with use of pillows and heel boots if needed.? Apply Preventative foams where needed. ? 3. Monitor for incontinence and moisture control, use barrier creams when needed for prevention and treatment. 4. Provide adequate and supplemental nutrition.? 5. Order low air loss mattress. 6. When applicable maintain blood glucose levels per Providers order. 7. Buttock and Intergluteal - Off Load Pressure with Q2 hr turns and use of pillows - Cleanse with PH balance spray or wipes, pat dry. ?Apply thin layer of Triad to wound bed - only pat and dab no scrub and rub when soiling occurs. Reapply thin layer PRN after each episode of incontinence. 8. Bilateral Lower Legs: Elevate lower legs of off bed surface and recliner with pillows. Cleanse withNS moist gauze pat dry. Apply Barrier cream to periwound. Cover wound bed with Durafiber AG followed by dry gauze ABD pad and Wrap. Change every 2-3 days and PRN for strike through staining. Re-consult wound care Nurse for wound deterioration or wound changes.
--- NOTE | 2024-11-13 15:39 | MHC.SL.SWA ---
Speech Pathologist Impression: Risk of Aspiration, Mild Oral Phase Dysphagia Dysphasia Diet Status: No Change Liquid Consistency and Strategies for Safe Swallow: Liquid Intake Recommendation: Thin Liquid Intake Strategies: Small Sips Solid Food Consistency: Dietary Recommendations: Grnd/Mech Altered (NDD2) Additional Modifications to Solid Foods: Recommend GROUND/MECH ALTERED (NDD2) diet and THIN liquids, pills WHOLE in PUREE. Alternate bites with sips of liquid to promote oral clearance. Oral Medication Intake: Whole with Puree Please contact the pharmacy regarding appropriate crushable or liquid drug formulations that are available whenever modified delivery is recommended. Compensatory Strategies and Precautions to be Taken for Safe Swallow: Sitting Upright (90 deg) Small Bites and Sips Alternate Liquids/Solids Rate of Ingestion Change Supervision While Eating and Drinking for Safe Swallow: Total Supervision (1:1) Foods to Avoid: Hard, dry, or sticky foods Swallowing Recommended Treatments: Compens. Strategy Educat. Recommendation for Speech: Inpatient Speech Therapy Comment: Patient w/ bottom dentures worn with adhesive and metal implant in bottom jaw. Patient says he typically eats softer foods and denies difficulty swallowing. Frequency/Duration: Date Range for Service Req: Timeline to reassess: Voip Technician Clinican/Clinical Fellow: No Supervisory Statement: I have reviewed and agree with the student/clinical fellow's documentation: N/A Speech Language Pathologist: Sheryl Small M.A., CCC-MATERIALS ENGINEERING TECHNICIAN
[2024-11-13 16:00] VITALS: BP 114/64; PULSE 77; RESP 18; TEMP 36.4; O2SAT 100
== END 2024-11-13 16:04 | disposition skilled nursing facility (03) | DRG 871 ==
LOC: HO.ED 16:48 → HO.EDOVER 20:36 → HO.IMC 11-12 01:12
PROVIDERS: Admitting Provider Student in an Organized Health Care Education/Training Program; Emergency Provider Emergency Medicine; PCP Family Medicine; Visit Provider Internal Medicine
DX: A41.89 Other specified sepsis (principal); I50.33 Acute on chronic diastolic (congestive) heart failure; J96.01 Acute respiratory failure with hypoxia; I48.20 Chronic atrial fibrillation, unspecified; D69.59 Other secondary thrombocytopenia; I11.0 Hypertensive heart disease with heart failure; N40.1 Benign prostatic hyperplasia with lower urinary tract symptoms; R33.8 Other retention of urine; J10.81 Influenza due to other identified influenza virus with encephalopathy; E66.9 Obesity, unspecified; Z95.2 Presence of prosthetic heart valve; Z68.34 Body mass index [BMI] 34.0-34.9, adult; I95.9 Hypotension, unspecified; Z71.3 Dietary counseling and surveillance; G89.4 Chronic pain syndrome; K21.9 Gastro-esophageal reflux disease without esophagitis; I87.8 Other specified disorders of veins; Z99.81 Dependence on supplemental oxygen; Z79.01 Long term (current) use of anticoagulants; Z79.899 Other long term (current) drug therapy
CPT/HCPCS: 0241U; 36415; 71045; 80048; 80076; 81001; 82140; 82947; 83605; 83690; 83735; 83880; 84484; 85025; 85027; 87040; 87086; 92526; 92610; 93005; 93306; 99285; J1940; J2543; P9047; Q9957

== ENCOUNTER → 2024-11-09 14:43 | Outpatient (BNV) | payer OTHER, MEDICAID, SELFPAY | PROVIDERS: Emergency Provider Emergency Medicine; PCP Family Medicine; Visit Provider Internal Medicine | DX: I48.91 Unspecified atrial fibrillation (principal) | CPT/HCPCS: 93010 ==

== ENCOUNTER → 2024-11-09 15:18 | Outpatient (BNV) | payer OTHER, MEDICAID, SELFPAY | PROVIDERS: Emergency Provider Emergency Medicine; PCP Family Medicine; Visit Provider Radiology Diagnostic Radiology | DX: I51.7 Cardiomegaly (principal) | CPT/HCPCS: 71045 ==

== ENCOUNTER 2024-11-09 20:30 | Outpatient (BNV) | payer OTHER, SELFPAY | END 2024-11-10 07:00 | PROVIDERS: Admitting Provider Student in an Organized Health Care Education/Training Program; Emergency Provider Emergency Medicine; PCP Family Medicine; Visit Provider Internal Medicine | DX: I27.20 Pulmonary hypertension, unspecified (principal); Z95.3 Presence of xenogenic heart valve; I34.81 Nonrheumatic mitral (valve) annulus calcification; I51.7 Cardiomegaly; I36.1 Nonrheumatic tricuspid (valve) insufficiency; I31.39 Other pericardial effusion (noninflammatory) | CPT/HCPCS: 93306 ==

== ENCOUNTER → 2024-11-09 20:30 | Outpatient (BNV) | payer OTHER, MEDICAID, SELFPAY | PROVIDERS: Admitting Provider Student in an Organized Health Care Education/Training Program; Emergency Provider Emergency Medicine; PCP Family Medicine; Visit Provider Physician Assistant | DX: A41.9 Sepsis, unspecified organism (principal); J96.01 Acute respiratory failure with hypoxia; G93.41 Metabolic encephalopathy; I50.9 Heart failure, unspecified; J10.1 Influenza due to other identified influenza virus with other respiratory manifestations; E87.20 Acidosis, unspecified; D69.6 Thrombocytopenia, unspecified | CPT/HCPCS: 99223; 99232; 99233 ==